=== PATIENT | male | born 1950 | race Caucasian/White ===

== ENCOUNTER 2018-12-15 19:01 | Inpatient (IN) | payer MEDICARE, OTHER ==
[~2018-12-15] VITALS: Ht 162.6 cm; Wt 65.0 kg
[~2018-12-15 19:01] MED LIST: CIPR500T4 PO; DOCU-144 PO; HYDR-762 PO; PROP40TA4 PO; TEMA30CA PO; UDMOM PO
[2018-12-15] MEDS ORDERED: PIPER-TAZO 3.375 GM IV (PMX) 100 ML IVPB STA (19:16)
[2018-12-15] MEDS ORDERED: SODIUM CHLORIDE 0.9% 1L BAG IV* STA (19:16)
--- NOTE | 2018-12-15 20:15 | CONS ---
Assessment/Plan Assessment/Plan Hospital Course (Demo Recall) 68-year-old male presented to the emergency room with complaint of fever and left testicular pain. 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 He also is known to have a history of prostate cancer status post radiation. Prior to that the patient did have transurethral resection of the prostate. Regular follow-up cystoscopy was done recently and was negative for cancer. On the physical exam he does have redness and erythema of the left side of the scrotum with a hard testicle and epididymis consistent with epididymitis. Impression: Left epididymitis. Rule out urinary tract infection Plan: Urine culture and sensitivity, IV antibiotics. The patient was on Cipro at home but it seems that did not prevent infection therefore he will need different antibiotic. Will put him on Zosyn pending the results of the urine culture Consultation Date/Type/Reason Admit Date/Time December 15, 2018 Date of Consultation: Dec 15, 2018 Type of Consult Urology Reason for Consultation Left epididymitis Requesting Provider: JUAN GALVAN MD Date/Time of Note DATE: 12/15/18 TIME: 20:07 Hx of Present Illness 68-year-old male presented to the emergency room with complaint of fever and left testicular pain. 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 He also is known to have a history of prostate cancer status post radiation. Prior to that the patient did have transurethral resection of the prostate. Regular follow-up cystoscopy was done recently and was negative for cancer. Constitutional: chills, febrile Eyes: no complaints ENT: no complaints Respiratory: no complaints Cardiovascular: no complaints Gastrointestinal: no complaints Genitourinary: dysuria, other (Left testicular pain) Musculoskeletal: no complaints Skin: no complaints Past Medical History Medical History: other (Depression) Home Meds Active Scripts Magnesium Hydroxide* (Becerril' MOM*) 30 Ml Susp, 30 ML PO DAILY PRN for CONSTIPATION, #120 BOTTLE Prov:LISBETH CARLISLE MD 06/02/14 Docusate Sodium* (Colace*) 100 Mg Cap, 100 MG PO BID, #60 CAP Prov:LISBETH CARLISLE MD 06/02/14 Reported Medications Ciprofloxacin Hcl* (Ciprofloxacin Hcl*) 500 Mg Tablet, 500 MG PO BID for 5 Days, TAB 0 Refills 06/02/14 Propranolol Hcl* (Propranolol Hcl*) 40 Mg Tablet, 40 MG PO BID, TAB 06/01/14 Temazepam* (Temazepam*) 30 Mg Capsule, 30 MG PO HS PRN for INSOMNIA, CAP 06/01/14 Hydrocodone Bit-Acetaminophen* ([place]*) 10-325 Mg Tablet, 1 TAB PO Q4H PRN for PAIN, TAB 06/01/14 Allergies: Coded Allergies: No Known Allergies (Verified Allergy, Unknown, 09/27/13) Past Surgical History Past Surgical Hx: appendectomy, cholecystectomy, other (Right nephroureterectomy and bladder cuff resection and transurethral resection of the prostate.) Social History Alcohol Use: none Smoking Status: Former smoker Drug Use: none Exam/Review of Systems Exam Vitals Vital Signs Date Temp Pulse Resp B/P (MAP) Pulse Ox O2 O2 Flow FiO2 Time Delivery Rate 12/15/18 100.9 109 18 97/59 (72) 96 19:03 Constitutional: alert Head: normocephalic Neck: supple Respiratory: normal air movement; No wheezing Cardiovascular: No jugular venous distention (JVD) Gastrointestinal: soft, surgical scars Genitourinary - Male: other (Left testis is hard and painful and the scrotal skin is erythematous and red) Musculoskeletal: nl extremities to inspection Extremities: No calf tenderness Neurological: nl mental status Skin: nl turgor Lymph: nl lymph nodes Results Result Diagram: 12/15/18192512/15/181925 Results 24hrs Laboratory Tests Test 12/15/18 19:21 12/15/18 19:26 POC Venous Lactate 1.6 White Blood Count 20.3 #H Red Blood Count 4.02 L Hemoglobin 11.7 L Hematocrit 36.1 L Mean Corpuscular Volume 89.8 Mean Corpuscular Hemoglobin 29.1 Mean Corpuscular Hemoglobin Concent 32.4 Red Cell Distribution Width 15.2 H Platelet Count 462 H Mean Platelet Volume 9.7 Immature Granulocytes % 0.700 H Neutrophils % 75.7 Lymphocytes % 11.3 L Monocytes % 10.3 Eosinophils % 1.3 Basophils % 0.7 Nucleated Red Blood Cells % 0.0 Immature Granulocytes # 0.150 H Neutrophils # 15.3 H Lymphocytes # 2.3 Monocytes # 2.1 H Eosinophils # 0.3 Basophils # 0.2 H Nucleated Red Blood Cells # 0.0 Prothrombin Time 12.9 Prothrombin Time Ratio 1.0 INR International Normalized Ratio 0.96 Activated Partial Thromboplast Time 32.3 Urine Color YELLOW Urine Clarity SLIGHTLY CLOUDY A Urine pH 6.0 Urine Specific [place] 1.023 Urine Ketones NEGATIVE Urine Nitrite NEGATIVE Urine Bilirubin NEGATIVE Urine Urobilinogen NEGATIVE Urine Leukocyte Esterase 2+ H Urine Microscopic RBC 3 Urine Microscopic WBC 84 H Urine Mucus FEW A Urine Hemoglobin NEGATIVE Urine Glucose NEGATIVE Urine Total Protein 1+ H Sodium Level 141 Potassium Level 4.1 Chloride Level 104 Carbon Dioxide Level 26 Anion Gap 11 Blood Urea Nitrogen 19 Creatinine 0.99 Est Glomerular Filtrat Rate mL/min > 60 Glucose Level 129 Calcium Level 9.7 Total Bilirubin 0.4 Direct Bilirubin 0.00 Indirect Bilirubin 0.4 Aspartate Amino Transf (AST/SGOT) 29 Alanine Aminotransferase (ALT/SGPT) 36 Alkaline Phosphatase 100 Troponin I < 0.012 Total Protein 8.0 Albumin 4.0 Globulin 4.00 H Albumin/Globulin Ratio 1.00 LISBETH CARLISLE MD Dec 15, 2018 20:14
--- NOTE | 2018-12-15 20:33 | ERD ---
ER Documentation Chief Complaint Chief Complaint FEVER, AP X'S 1 WEEK. SENT BY PCP FOR IMAGING HPI 68-year-old male presenting with multiple complaints including intermittent fevers for the past few weeks as well as chills and night sweats. He has been experiencing several months of right-sided abdominal pain that is worsening, ra diating up into his right upper quadrant and across his lower abdomen. He denies any associated hematuria or dysuria. However he did have recent cystoscopy. His urologist is Dr. Carlisle. He has not been having any associated nausea, vomiting, or diarrhea. He is also complaining of a dry cough without hemoptysis or phlegm production. No associated shortness of breath or chest pain. ROS All systems reviewed and are negative except as per history of present illness. Medications Home Meds Active Scripts Magnesium Hydroxide* (Becerril' MOM*) 30 Ml Susp, 30 ML PO DAILY PRN for CONSTIPATION, #120 BOTTLE Prov:LISBETH CARLISLE MD 06/02/14 Docusate Sodium* (Colace*) 100 Mg Cap, 100 MG PO BID, #60 CAP Prov:LISBETH CARLISLE MD 06/02/14 Reported Medications Ciprofloxacin Hcl* (Ciprofloxacin Hcl*) 500 Mg Tablet, 500 MG PO BID for 5 Days, TAB 0 Refills 06/02/14 Propranolol Hcl* (Propranolol Hcl*) 40 Mg Tablet, 40 MG PO BID, TAB 06/01/14 Temazepam* (Temazepam*) 30 Mg Capsule, 30 MG PO HS PRN for INSOMNIA, CAP 06/01/14 Hydrocodone Bit-Acetaminophen* ([place]*) 10-325 Mg Tablet, 1 TAB PO Q4H PRN for PAIN, TAB 06/01/14 Allergies Allergies: Coded Allergies: No Known Allergies (Verified Allergy, Unknown, 09/27/13) PMhx/Soc History of Surgery: Yes (TURP, nephrectomy) Anesthesia Reaction: No Hx Neurological Disorder: No Hx Respiratory Disorders: No Hx Cardiac Disorders: No Hx Psychiatric Problems: Yes (INSOMIA) Hx Miscellaneous Medical Probl: Yes (History of prostate cancer, right kidney cancer) Hx Alcohol Use: No Hx Substance Use: No Hx Tobacco Use: No Smoking Status: Former smoker FmHx Family History: No diabetes Physical Exam Vitals Vital Signs Date Temp Pulse Resp B/P (MAP) Pulse Ox O2 O2 Flow FiO2 Time Delivery Rate 7/3/19 85 16 110/83 96 Room Air 22:30 (92) 12/15/18 84 18 112/78 97 Room Air 22:00 (89) 12/15/18 86 16 105/61 96 Room Air 21:30 (76) 12/15/18 98.8 84 16 109/66 99 Room Air 20:06 (80) 12/15/18 100.9 109 18 97/59 (72) 96 19:03 Physical Exam Const: No acute distress, nontoxic Head: Atraumatic Eyes: Normal Conjunctiva ENT: Normal External Ears, Nose and Mouth. Neck: Full range of motion. No meningismus. Resp: Clear to auscultation bilaterally Cardio: Regular rate and rhythm, no murmurs Abd: Soft, mild right lower quadrant tenderness without rebound or guarding. No masses. Non distended. Normal bowel sounds Skin: No petechiae or rashes Back: No midline or flank tenderness Ext: No cyanosis, or edema Neur: Awake and alert Psych: Normal Mood and Affect Result Diagram: 12/15/18192512/15/181925 Results 24 hrs Laboratory Tests Test 12/15/18 19:21 12/15/18 19:26 12/15/18 21:47 POC Venous Lactate 1.6 mmol/L White Blood Count 20.3 10^3/ul Red Blood Count 4.02 10^6/ul Hemoglobin 11.7 g/dl Hematocrit 36.1 % Mean Corpuscular Volume 89.8 fl Mean Corpuscular Hemoglobin 29.1 pg Mean Corpuscular Hemoglobin Concent 32.4 g/dl Red Cell Distribution Width 15.2 % Platelet Count 462 10^3/UL Mean Platelet Volume 9.7 fl Immature Granulocytes % 0.700 % Neutrophils % 75.7 % Lymphocytes % 11.3 % Monocytes % 10.3 % Eosinophils % 1.3 % Basophils % 0.7 % Nucleated Red Blood Cells % 0.0 /100WBC Immature Granulocytes # 0.150 10^3/ul Neutrophils # 15.3 10^3/ul Lymphocytes # 2.3 10^3/ul Monocytes # 2.1 10^3/ul Eosinophils # 0.3 10^3/ul Basophils # 0.2 10^3/ul Nucleated Red Blood Cells # 0.0 10^3/ul Prothrombin Time 12.9 Sec Prothrombin Time Ratio 1.0 INR International Normalized Ratio 0.96 Activated Partial Thromboplast Time 32.3 Sec Urine Color YELLOW Urine Clarity SLIGHTLY CLOUDY Urine pH 6.0 Urine Specific [place] 1.023 Urine Ketones NEGATIVE mg/dL Urine Nitrite NEGATIVE mg/dL Urine Bilirubin NEGATIVE mg/dL Urine Urobilinogen NEGATIVE mg/dL Urine Leukocyte Esterase 2+ Jose/ul Urine Microscopic RBC 3 /HPF Urine Microscopic WBC 84 /HPF Urine Mucus FEW /HPF Urine Hemoglobin NEGATIVE mg/dL Urine Glucose NEGATIVE mg/dL Urine Total Protein 1+ mg/dl Sodium Level 141 mmol/L Potassium Level 4.1 mmol/L Chloride Level 104 mmol/L Carbon Dioxide Level 26 mmol/L Anion Gap 11 Blood Urea Nitrogen 19 mg/dl Creatinine 0.99 mg/dl Est Glomerular Filtrat Rate mL/min > 60 mL/min Glucose Level 129 mg/dl Calcium Level 9.7 mg/dl Total Bilirubin 0.4 mg/dl Direct Bilirubin 0.00 mg/dl Indirect Bilirubin 0.4 mg/dl Aspartate Amino Transf (AST/SGOT) 29 IU/L Alanine Aminotransferase (ALT/SGPT) 36 IU/L Alkaline Phosphatase 100 IU/L Troponin I < 0.012 ng/ml Total Protein 8.0 g/dl Albumin 4.0 g/dl Globulin 4.00 g/dl Albumin/Globulin Ratio 1.00 Lactic Acid Level 0.9 mmol/L Current Medications Medications Dose Sig/Liset Start Time Status Last (Trade) Ordered Route PRN Stop Time Admin Dose Reason Admin Sodium 1,900 ml BOLUS OVER 2 12/15/18 DC 12/15/18 Chloride HOURS STAT 19:16 12/15/18 19:26 (NS) IV* 19:18 Piperacillin 100 ml @ ONCE STAT 12/15/18 DC 12/15/18 Sod/ 200 mls/hr IVPB 19:16 12/15/18 19:26 Tazobactam 19:45 Sod IV Flush 10 ml STK-MED 12/15/18 DC (NS 10 ml) ONCE .ROUTE 20:35 12/15/18 20:36 Sodium 100 ml @ ud STK-MED 12/15/18 DC Chloride ONCE .ROUTE 20:35 12/15/18 20:36 Iohexol 150 ml STK-MED 12/15/18 DC (Omnipaque ONCE .ROUTE 20:35 12/15/18 300mg/ ml) 20:36 Ondansetron 4 mg BRIDGE ORDER 12/15/18 HCl (Zofran PRN IV 23:00 12/16/18 Inj) NAUSEA/VOMITI 22:59 NG 650 mg ER BRIDGE 12/15/18 Acetaminophen PRN PO 23:00 12/16/18 (Tylenol .MILD PAIN 22:59 Tab) 1-3 OR TEMP Procedures/MDM EMERGENT LABS AND DIAGNOSTIC STUDIES: Lab Results above were reviewed and interpreted by me. CBC: Leukocytosis and thrombocytosis, concerning for infection. No significant anemia CMP: No evidence of clinically significant electrolyte abnormality, acidosis, renal failure, hypoglycemia, liver disease, or biliary obstruction Troponin within normal limits, not indicative of cardiac ischemia Lactate within normal limits without evidence of sepsis or tissue hypoperfusion UA: findings consistent with acute infection 12-lead EKG was interpreted by Khadar Simpson MD: Normal Sinus Rhythm with ventricular rate of 81 beats per minute Normal axis Normal intervals No acute ST or T wave changes suggestive of acute ischemia or STEMI. Radiology Results as interpreted by Radiology below were reviewed by SNeal martinez MD: Chest x-ray: IMPRESSION: 1. A spiculated 5.7 x 3.8 cm mass like density is seen within the medial right upper lobe extending to the right paratracheal region. Correlation with CT is r ecommended for further evaluation. 2. No effusion is identified. 3. The cardiovascular silhouette is stable and unremarkable. 4. There is now mild elevation of the medial right hemidiaphragm. 5. Several right anterolateral rib fracture deformities are again noted. CT abdomen pelvis shows no acute abnormalities Initial Nursing notes reviewed. Previous Medical Records requested via the Electronic Health Record. EMERGENCY DEPARTMENT COURSE / MEDICAL DECISION MAKING: Admit MDM: Patient presented with fever and tachycardia with associated abdominal pain, concerning for Sirs possibly due to infection. Sepsis work-up was initiated. Patient did have leukocytosis but his lactate was within normal limits and there is no other signs of endorgan injury. No evidence of severe sepsis or septic shock at this time. However the patient was treated with IV fluids, IV antibiotics, and noted to have a UTI and epididymitis on work-up. Patient was incidentally found to have a right-sided Pulmonary mass on chest x-ray which was further evaluated by CT scan of the chest. It seems that the patient most likely has lung malignancy. This was discussed with the patient and his family. Further work-up will be deferred to the inpatient team. Patient's infectious symptoms have not stabilized, and the patient is at risk of rapid decompensation. The patient will be admitted for careful hydration, antibiotic therapy, and infectious source control. Accepting Care Team Current data and ongoing care discussed. Admitting Physician: Dr. Ybarra Customer Program Specialist(s): Dr. Carlisle Critical Care Time: 35 minutes Treatments/Evaluations: Close monitoring and treatment of unstable vital signs, cardiorespiratory, and neurologic status, while maintaining tight balance of fluid, respiratory, and cardiac interventions. This includes the administration of emergency fluid management while maintaining close respiratory support as well as the provision of immediate and broad-spectrum antibiotic therapy, while performing a simultaneous assessment for possible sources in order to direct targeted therapy. This time includes discussing the case with the patient and the patients family.This time also includes the consideration for invasive and chemical support to prevent cardiopulmonary collapse. This time does not include all procedures stated elsewhere in this record. This time also includes reviewing old records, labs and radiological studies. This time includes examining and reexamining the patient. Additionally, this time also includes arranging care with admitting and consulting physicians. Departure Diagnosis: Primary Impression: UTI (urinary tract infection) Urinary tract infection type: acute cystitis Hematuria presence: without hematuria Qualified Codes: N30.00 - Acute cystitis without hematuria Additional Impressions: Sepsis Sepsis type: sepsis due to unspecified organism Qualified Codes: A41.9 - Sepsis, unspecified organism Lung tumor Condition: JUAN Parker MD Dec 15, 2018 20:33
[2018-12-15] MEDS ORDERED: SOD CHLORIDE 0.9% 100 ML ONE (20:35)
[2018-12-15] MEDS ORDERED: IOHEXOL 300MG/ML 150 ML BTL ONE (20:35)
[2018-12-15] MEDS ORDERED: ACETAMINOPHEN 325 MG TAB PO PRN (23:00)
[2018-12-15] MEDS ORDERED: ONDANSETRON 4 MG INJ IV PRN (23:00)
[2018-12-16] MEDS ORDERED: COLC0.6C PO (00:28)
[2018-12-16] MEDS ORDERED: IBUP-1541 PO (00:28)
[2018-12-16] MEDS ORDERED: AMOX500C2 PO (00:28)
[2018-12-16] MEDS ORDERED: PROP20TA4 PO (00:28)
[2018-12-16 00:31] VITALS: BP 133/73; PULSE 84; RESP 18
[2018-12-16] MEDS ORDERED: ACET500C5 PO (00:44)
[2018-12-16] MEDS ORDERED: HYDR-3980 PO (00:44)
[2018-12-16] MEDS ORDERED: TEMA30CA PO (00:44)
[2018-12-16 00:51] VITALS: Ht 162.6 cm; Wt 65.0 kg
[2018-12-16] MEDS ORDERED: NACL 0.9% 3 ML SYG IV SCH (01:30)
[2018-12-16] MEDS ORDERED: IBUPROFEN 400 MG TAB PO PRN (01:30)
[2018-12-16] MEDS ORDERED: morphine 2 MG INJ IV PRN (01:30)
[2018-12-16] MEDS ORDERED: ALBUTEROL/IPRATROPIUM (NEB) 3 ML AMP HHN PRN (01:30)
[2018-12-16] MEDS ORDERED: ACETAMINOPHEN 325 MG TAB PO PRN (01:30)
[2018-12-16] MEDS ORDERED: ONDANSETRON 4 MG INJ IV PRN (01:30)
[2018-12-16] MEDS: HYDROCODONE/APAP (10/325) TAB PO PRN ×4 (01:38→23:52)
[2018-12-16] MEDS: SOD CHLORIDE 0.9% 1,000 ML IV SCH ×3 (01:38→16:00)
[2018-12-16 02:00] VITALS: BP 122/58; PULSE 85; RESP 17
[2018-12-16] MEDS: PIPER-TAZO 3.375 GM IV (PMX) 100 ML IVPB SCH ×4 (05:20→23:46)
[2018-12-16 08:15] VITALS: BP 110/58; PULSE 90; RESP 18
[2018-12-16] MEDS: COLCHICINE 0.6 MG CAP PO SCH ×2 (08:31→20:29)
[2018-12-16] MEDS ORDERED: NON-FORMULARY/PATIENT OWN MED (Colchicine 0.6 MG) PO SCH (09:00)
[2018-12-16] MEDS ORDERED: HEPARIN 5,000 UNIT/1 ML VIAL SC SCH (09:00)
--- NOTE | 2018-12-16 09:48 | HP ---
Date/Time of Note Date/Time of Note DATE: 12/16/18 TIME: 09:39 Assessment/Plan VTE Prophylaxis Risk score (from [facility] [place] [facility])>0 risk: 3 SCD applied (from Ns): Yes Pharmacological prophylaxis: heparin Lines/Catheters IV Catheter Type (from [facility]): Peripheral IV Assessment/Plan Assessment/Plan 1. Sepsis, as evidenced by fever and leukocytosis: Secondary to left epididymitis and UTI -IV antibiotic, IV fluid -Follow-up culture results -Urology on board 2. Suspicious lung metastasis -Patient with a history of left renal carcinoma status post nephrectomy and prostate cancer status post TURP and radiation -Oncology consult 3. History of left renal cancer, status post nephroureterectomy and bladder cuff surgery -See #2 4. History of prostate cancer, status post TURP and radiation: Again see #2 5. Severe emphysema, patient on active smoker -Supplemental oxygen, bronchodilators and steroid as needed Result Diagram: 12/16/18 0655 12/16/18 0655 Results 24hrs Laboratory Tests Test 12/15/18 19:21 12/15/18 19:26 12/15/18 21:47 12/15/18 23:34 POC Venous Lactate 1.6 White Blood Count 20.3 #H Red Blood Count 4.02 L Hemoglobin 11.7 L Hematocrit 36.1 L Mean Corpuscular 89.8 Volume Mean Corpuscular 29.1 Hemoglobin Mean Corpuscular 32.4 Hemoglobin Concent Red Cell 15.2 H Distribution Width Platelet Count 462 H Mean Platelet 9.7 Volume Immature 0.700 H Granulocytes % Neutrophils % 75.7 Lymphocytes % 11.3 L Monocytes % 10.3 Eosinophils % 1.3 Basophils % 0.7 Nucleated Red 0.0 Blood Cells % Immature 0.150 H Granulocytes # Neutrophils # 15.3 H Lymphocytes # 2.3 Monocytes # 2.1 H Eosinophils # 0.3 Basophils # 0.2 H Nucleated Red 0.0 Blood Cells # Prothrombin Time 12.9 Prothrombin Time 1.0 Ratio INR International 0.96 Normalized Ratio Activated 32.[address] Time Urine Color YELLOW Urine Clarity SLIGHTLY CLOUDY A Urine pH 6.0 Urine Specific 1.023 [place] Urine Ketones NEGATIVE Urine Nitrite NEGATIVE Urine Bilirubin NEGATIVE Urine Urobilinogen NEGATIVE Urine Leukocyte 2+ H Esterase Urine Microscopic 3 RBC Urine Microscopic 84 H WBC Urine Mucus FEW A Urine Hemoglobin NEGATIVE Urine Glucose NEGATIVE Urine Total 1+ H Protein Sodium Level 141 Potassium Level 4.1 Chloride Level 104 Carbon Dioxide 26 Level Anion Gap 11 Blood Urea 19 Nitrogen Creatinine 0.99 Est Glomerular > 60 Filtrat Rate mL/min Glucose Level 129 Calcium Level 9.7 Total Bilirubin 0.4 Direct Bilirubin 0.00 Indirect Bilirubin 0.4 Aspartate Amino 29 Transf (AST/SGOT) Alanine 36 Aminotransferase ( ALT/SGPT) Alkaline 100 Phosphatase Troponin I < 0.012 Total Protein 8.0 Albumin 4.0 Globulin 4.00 H Albumin/Globulin 1.00 Ratio Lactic Acid Level 0.9 0.9 Test 12/16/18 06:55 White Blood Count 16.5 H Red Blood Count 3.46 L Hemoglobin 10.1 L Hematocrit 31.0 L Mean Corpuscular 89.6 Volume Mean Corpuscular 29.2 Hemoglobin Mean Corpuscular 32.6 Hemoglobin Concent Red Cell 15.3 H Distribution Width Platelet Count 404 Mean Platelet 9.8 Volume Immature 0.800 H Granulocytes % Neutrophils % 75.2 Lymphocytes % 12.6 L Monocytes % 9.1 Eosinophils % 1.6 Basophils % 0.7 Nucleated Red 0.0 Blood Cells % Immature 0.130 H Granulocytes # Neutrophils # 12.4 H Lymphocytes # 2.1 Monocytes # 1.5 H Eosinophils # 0.3 Basophils # 0.1 Nucleated Red 0.0 Blood Cells # Sodium Level 140 Potassium Level 3.9 Chloride Level 107 Carbon Dioxide 24 Level Anion Gap 9 Blood Urea 11 Nitrogen Creatinine 0.75 Est Glomerular > 60 Filtrat Rate mL/min Glucose Level 106 Calcium Level 8.8 Phosphorus Level 2.4 L Magnesium Level 1.9 Total Bilirubin 0.5 Direct Bilirubin 0.00 Indirect Bilirubin 0.5 Aspartate Amino 21 Transf (AST/SGOT) Alanine 32 Aminotransferase ( ALT/SGPT) Alkaline 82 Phosphatase Total Protein 6.7 # Albumin 3.2 L Globulin 3.50 H Albumin/Globulin 0.91 Ratio HPI/ROS Admit Date/Time Admit Date/Time December 15, 2018 Hx of Present Illness Patient is a 68-year-old male with a history of right kidney carcinoma status post nephrectomy, prostate cancer status post TURP and radiation. Patient presented to ER complaining of left testicular pain and redness. He recently had cystoscopy which was negative for malignancy. When the presents the ER, he was febrile with a temperature of 100.9. WBC 20,000. UA consistent with UTI. Patient has been on Cipro at home. 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 No residual, recurrent or metastatic disease. Tiny nonobstructing left renal calculus. Parenchymal cyst left kidney. -Cholecystectomy. -Hepatic cysts. -Stable 8 mm nodule right lower lobe unchanged since 2012. -Mild scarring lung bases. -No evidence of diverticulitis. Nonvisualization appendix. Dedicated chest CT was done and it shows the following: -5.7 cm paramediastinal mass in the right upper lobe which abuts the superior right hilum, suspicious for a primary lung neoplasm. Diffuse interstitial opacities are seen along the periphery of the lesion, consistent with neoplastic infiltration into the lung. -Two left lower lobe nodules measuring up to 9 mm, suspicious for metastatic disease. -A few right paratracheal lymph nodes measuring up to 8 mm short axis. Although these are not technically enlarged by CT criteria, lymph node metastases cannot be excluded. -Moderate to severe centrilobular emphysema, in an upper lung predominant distribution. -Nonspecific 2.3 cm right adrenal gland nodule. PMH/Family/Social Past Medical History Medical History: other Medications Current Medications Ondansetron HCl (Zofran Inj) 4 mg BRIDGE ORDER PRN IV NAUSEA/VOMITING; Start 12/15/18 at 23:00; Stop 12/16/18 at 22:59 Acetaminophen (Tylenol Tab) 650 mg ER BRIDGE PRN PO .MILD PAIN 1-3 OR TEMP; Start 12/15/18 at 23:00; Stop 12/16/18 at 22:59 Sodium Chloride 1,000 ml @ 100 mls/hr Q10H IV Last administered on 12/16/18at 01:38; Admin Dose 100 MLS/HR; Start 12/16/18 at 01:13 IV Flush (NS 3 ml) 3 ml PER PROTOCOL IV ; Start 12/16/18 at 01:30 Ondansetron HCl (Zofran Inj) 4 mg Q6H PRN IV NAUSEA/VOMITING; Start 12/16/18 at 01:30 Acetaminophen (Tylenol Tab) 650 mg Q6H PRN PO .PAIN 1-3 OR TEMP; Start 12/16/18 at 01:30 Morphine Sulfate (morphine) 2 mg Q4H PRN IV .SEVERE PAIN 7-10; Start 12/16/18 at 01:30 Heparin Sodium (Porcine) (Heparin (5000 Units/1ml)) 5,000 unit Q12 SC Last administered on 12/16/18at 08:32; Admin Dose 5,000 UNIT; Start 12/16/18 at 09:00 Albuterol/ Ipratropium (Duoneb) 3 ml Q2H RESP THERAPY PRN HHN SHORTNESS OF BREATH; Start 12/16/18 at 01:30 Acetaminophen/ Hydrocodone Bitart ([place] (10/325)) 1 tab Q4H PRN PO PAIN Last administered on 12/16/18at 01:38; Admin Dose 1 TAB; Start 12/16/18 at 01:30 Ibuprofen (Motrin) 400 mg Q6H PRN PO PAIN LEVEL 1-3 OR FEVER; Start 12/16/18 at 01:30 Zolpidem Tartrate (Ambien) 5 mg HS MAY REPEAT X 1 PRN PO INSOMNIA; Start 12/16/18 at 01:30 Piperacillin Sod/ Tazobactam Sod 100 ml @ 200 mls/hr Q6 IVPB Last administered on 12/16/18at 05:20; Admin Dose 200 MLS/HR; Start 12/16/18 at 06:00 Colchicine (Colchicine) 0.6 mg BID PO Last administered on 12/16/18at 08:31; Admin Dose 0.6 MG; Start 12/16/18 at 09:00 Coded Allergies: No Known Allergies (Unverified Allergy, Unknown, 12/16/18) Past Surgical History Past Surgical Hx: appendectomy, cholecystectomy, other Social History Alcohol Use: none Smoking Status: Current every day smoker Drug Use: none Exam/Review of Systems Vital Signs Vitals Vital Signs Date Temp Pulse Resp B/P (MAP) Pulse Ox O2 O2 Flow FiO2 Time Delivery Rate 12/16/18 98.5 90 18 110/58 95 Room Air 08:15 (75) Intake and Output 12/15/18 12/15/18 12/16/18 1515:00 23:00 07:00 IntakeIntake Total 550 ml BalanceBalance 550 ml Exam Constitutional: alert, oriented Head: normocephalic, atraumatic Eyes: EOMI, PERRL Respiratory: normal air movement Cardiovascular: regular rate and rhythm Gastrointestinal: soft, non-tender Genitourinary - Male: other (Left side of scrotum/testicle is not swollen and erythematous and tender to touch) Extremities: normal pulses SAMUEL CURRIE MD Dec 16, 2018 09:48
[2018-12-16] MEDS ORDERED: VANCOMYCIN IV PER PHARMACY XX SCH (10:00)
[2018-12-16] MEDS ORDERED: VANCOMYCIN HCL 1.25 GM in SOD CHLORIDE 0.9% 250 ML IVPB SCH (12:00)
--- NOTE | 2018-12-16 12:43 | PN ---
Date/Time of Note Date/Time of Note DATE: 12/16/18 TIME: 12:41 Assessment/Plan VTE Prophylaxis Risk score (from Ns)>0 risk: 3 SCD applied (from Ns): Yes SCD contraindicated: low risk/ambulating Pharmacological prophylaxis: LMWH Lines/Catheters IV Catheter Type (from [facility]): Peripheral IV Assessment/Plan Hospital Course Assessment and plan 1. Sepsis, stable follow-up on cultures 2. Left epididymitis, continue antibiotics 3. 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 History of prostate cancer status post radiation 5. BPH status post TURP 6. Tobacco abuse status post counseling 7. Emphysema 8. Anemia 9. Multiple pulmonary nodules, consider outpatient oncology/biopsy 10. Subjective: Left testicular pain. Less fever. Occasional loose bowel movements. No nausea vomiting or ill foods. Patient Objective: Vital signs stable less fever Physical exam No pallor adenopathy Regular Clear no tachypnea Benign; left testicular tenderness No edema/Homans Result Diagram: 12/16/18 0655 12/16/18 0655 Results 24hrs Laboratory Tests Test 12/15/18 19:21 12/15/18 19:26 12/15/18 21:47 12/15/18 23:34 POC Venous Lactate 1.6 White Blood Count 20.3 #H Red Blood Count 4.02 L Hemoglobin 11.7 L Hematocrit 36.1 L Mean Corpuscular 89.8 Volume Mean Corpuscular 29.1 Hemoglobin Mean Corpuscular 32.4 Hemoglobin Concent Red Cell 15.2 H Distribution Width Platelet Count 462 H Mean Platelet 9.7 Volume Immature 0.700 H Granulocytes % Neutrophils % 75.7 Lymphocytes % 11.3 L Monocytes % 10.3 Eosinophils % 1.3 Basophils % 0.7 Nucleated Red 0.0 Blood Cells % Immature 0.150 H Granulocytes # Neutrophils # 15.3 H Lymphocytes # 2.3 Monocytes # 2.1 H Eosinophils # 0.3 Basophils # 0.2 H Nucleated Red 0.0 Blood Cells # Prothrombin Time 12.9 Prothrombin Time 1.0 Ratio INR International 0.96 Normalized Ratio Activated 32.[address] Time Urine Color YELLOW Urine Clarity SLIGHTLY CLOUDY A Urine pH 6.0 Urine Specific 1.023 Philip Urine Ketones NEGATIVE Urine Nitrite NEGATIVE Urine Bilirubin NEGATIVE Urine Urobilinogen NEGATIVE Urine Leukocyte 2+ H Esterase Urine Microscopic 3 RBC Urine Microscopic 84 H WBC Urine Mucus FEW A Urine Hemoglobin NEGATIVE Urine Glucose NEGATIVE Urine Total 1+ H Protein Sodium Level 141 Potassium Level 4.1 Chloride Level 104 Carbon Dioxide 26 Level Anion Gap 11 Blood Urea 19 Nitrogen Creatinine 0.99 Est Glomerular > 60 Filtrat Rate mL/min Glucose Level 129 Calcium Level 9.7 Total Bilirubin 0.4 Direct Bilirubin 0.00 Indirect Bilirubin 0.4 Aspartate Amino 29 Transf (AST/SGOT) Alanine 36 Aminotransferase ( ALT/SGPT) Alkaline 100 Phosphatase Troponin I < 0.012 Total Protein 8.0 Albumin 4.0 Globulin 4.00 H Albumin/Globulin 1.00 Ratio Lactic Acid Level 0.9 0.9 Test 12/16/18 06:55 White Blood Count 16.5 H Red Blood Count 3.46 L Hemoglobin 10.1 L Hematocrit 31.0 L Mean Corpuscular 89.6 Volume Mean Corpuscular 29.2 Hemoglobin Mean Corpuscular 32.6 Hemoglobin Concent Red Cell 15.3 H Distribution Width Platelet Count 404 Mean Platelet 9.8 Volume Immature 0.800 H Granulocytes % Neutrophils % 75.2 Lymphocytes % 12.6 L Monocytes % 9.1 Eosinophils % 1.6 Basophils % 0.7 Nucleated Red 0.0 Blood Cells % Immature 0.130 H Granulocytes # Neutrophils # 12.4 H Lymphocytes # 2.1 Monocytes # 1.5 H Eosinophils # 0.3 Basophils # 0.1 Nucleated Red 0.0 Blood Cells # Sodium Level 140 Potassium Level 3.9 Chloride Level 107 Carbon Dioxide 24 Level Anion Gap 9 Blood Urea 11 Nitrogen Creatinine 0.75 Est Glomerular > 60 Filtrat Rate mL/min Glucose Level 106 Calcium Level 8.8 Phosphorus Level 2.4 L Magnesium Level 1.9 Total Bilirubin 0.5 Direct Bilirubin 0.00 Indirect Bilirubin 0.5 Aspartate Amino 21 Transf (AST/SGOT) Alanine 32 Aminotransferase ( ALT/SGPT) Alkaline 82 Phosphatase Total Protein 6.7 # Albumin 3.2 L Globulin 3.50 H Albumin/Globulin 0.91 Ratio Exam/Review of Systems Exam Vitals Vital Signs Date Temp Pulse Resp B/P (MAP) Pulse Ox O2 O2 Flow FiO2 Time Delivery Rate 12/16/18 98.5 90 18 110/58 95 Room Air 08:15 (75) Intake and Output 12/15/18 12/15/18 12/16/18 1515:00 23:00 07:00 IntakeIntake Total 550 ml BalanceBalance 550 ml Results Results 24hrs Laboratory Tests Test 12/15/18 19:21 12/15/18 19:26 12/15/18 21:47 12/15/18 23:34 POC Venous Lactate 1.6 White Blood Count 20.3 #H Red Blood Count 4.02 L Hemoglobin 11.7 L Hematocrit 36.1 L Mean Corpuscular 89.8 Volume Mean Corpuscular 29.1 Hemoglobin Mean Corpuscular 32.4 Hemoglobin Concent Red Cell 15.2 H Distribution Width Platelet Count 462 H Mean Platelet 9.7 Volume Immature 0.700 H Granulocytes % Neutrophils % 75.7 Lymphocytes % 11.3 L Monocytes % 10.3 Eosinophils % 1.3 Basophils % 0.7 Nucleated Red 0.0 Blood Cells % Immature 0.150 H Granulocytes # Neutrophils # 15.3 H Lymphocytes # 2.3 Monocytes # 2.1 H Eosinophils # 0.3 Basophils # 0.2 H Nucleated Red 0.0 Blood Cells # Prothrombin Time 12.9 Prothrombin Time 1.0 Ratio INR International 0.96 Normalized Ratio Activated 32.[address] Time Urine Color YELLOW Urine Clarity SLIGHTLY CLOUDY A Urine pH 6.0 Urine Specific 1.023 Philip Urine Ketones NEGATIVE Urine Nitrite NEGATIVE Urine Bilirubin NEGATIVE Urine Urobilinogen NEGATIVE Urine Leukocyte 2+ H Esterase Urine Microscopic 3 RBC Urine Microscopic 84 H WBC Urine Mucus FEW A Urine Hemoglobin NEGATIVE Urine Glucose NEGATIVE Urine Total 1+ H Protein Sodium Level 141 Potassium Level 4.1 Chloride Level 104 Carbon Dioxide 26 Level Anion Gap 11 Blood Urea 19 Nitrogen Creatinine 0.99 Est Glomerular > 60 Filtrat Rate mL/min Glucose Level 129 Calcium Level 9.7 Total Bilirubin 0.4 Direct Bilirubin 0.00 Indirect Bilirubin 0.4 Aspartate Amino 29 Transf (AST/SGOT) Alanine 36 Aminotransferase ( ALT/SGPT) Alkaline 100 Phosphatase Troponin I < 0.012 Total Protein 8.0 Albumin 4.0 Globulin 4.00 H Albumin/Globulin 1.00 Ratio Lactic Acid Level 0.9 0.9 Test 12/16/18 06:55 White Blood Count 16.5 H Red Blood Count 3.46 L Hemoglobin 10.1 L Hematocrit 31.0 L Mean Corpuscular 89.6 Volume Mean Corpuscular 29.2 Hemoglobin Mean Corpuscular 32.6 Hemoglobin Concent Red Cell 15.3 H Distribution Width Platelet Count 404 Mean Platelet 9.8 Volume Immature 0.800 H Granulocytes % Neutrophils % 75.2 Lymphocytes % 12.6 L Monocytes % 9.1 Eosinophils % 1.6 Basophils % 0.7 Nucleated Red 0.0 Blood Cells % Immature 0.130 H Granulocytes # Neutrophils # 12.4 H Lymphocytes # 2.1 Monocytes # 1.5 H Eosinophils # 0.3 Basophils # 0.1 Nucleated Red 0.0 Blood Cells # Sodium Level 140 Potassium Level 3.9 Chloride Level 107 Carbon Dioxide 24 Level Anion Gap 9 Blood Urea 11 Nitrogen Creatinine 0.75 Est Glomerular > 60 Filtrat Rate mL/min Glucose Level 106 Calcium Level 8.8 Phosphorus Level 2.4 L Magnesium Level 1.9 Total Bilirubin 0.5 Direct Bilirubin 0.00 Indirect Bilirubin 0.5 Aspartate Amino 21 Transf (AST/SGOT) Alanine 32 Aminotransferase ( ALT/SGPT) Alkaline 82 Phosphatase Total Protein 6.7 # Albumin 3.2 L Globulin 3.50 H Albumin/Globulin 0.91 Ratio Medications Medication Current Medications Sodium Chloride 1,000 ml @ 100 mls/hr Q10H IV Last administered on 12/16/18at 01:38; Admin Dose 100 MLS/HR; Start 12/16/18 at 01:13 IV Flush (NS 3 ml) 3 ml PER PROTOCOL IV ; Start 12/16/18 at 01:30 Ondansetron HCl (Zofran Inj) 4 mg Q6H PRN IV NAUSEA/VOMITING; Start 12/16/18 at 01:30 Acetaminophen (Tylenol Tab) 650 mg Q6H PRN PO .PAIN 1-3 OR TEMP; Start 12/16/18 at 01:30 Morphine Sulfate (morphine) 2 mg Q4H PRN IV .SEVERE PAIN 7-10; Start 12/16/18 at 01:30 Heparin Sodium (Porcine) (Heparin (5000 Units/1ml)) 5,000 unit Q12 SC Last administered on 12/16/18at 08:32; Admin Dose 5,000 UNIT; Start 12/16/18 at 09:00 Albuterol/ Ipratropium (Duoneb) 3 ml Q2H RESP THERAPY PRN HHN SHORTNESS OF BREATH; Start 12/16/18 at 01:30 Acetaminophen/ Hydrocodone Bitart ([place] (10/325)) 1 tab Q4H PRN PO PAIN Last administered on 12/16/18at 12:01; Admin Dose 1 TAB; Start 12/16/18 at 01:30 Ibuprofen (Motrin) 400 mg Q6H PRN PO PAIN LEVEL 1-3 OR FEVER; Start 12/16/18 at 01:30 Zolpidem Tartrate (Ambien) 5 mg HS MAY REPEAT X 1 PRN PO INSOMNIA; Start 12/16/18 at 01:30 Piperacillin Sod/ Tazobactam Sod 100 ml @ 200 mls/hr Q6 IVPB Last administered on 12/16/18at 11:19; Admin Dose 200 MLS/HR; Start 12/16/18 at 06:00 Colchicine (Colchicine) 0.6 mg BID PO Last administered on 12/16/18at 08:31; Admin Dose 0.6 MG; Start 12/16/18 at 09:00 Vancomycin HCl (Vanco Iv Per Pharmacy) VANCOMYCIN PER PHARMACY PER PROTOCOL XX ; Start 12/16/18 at 10:00 Vancomycin HCl 1.25 gm/Sodium Chloride 250 ml @ 83.333 mls/ hr ONCE IVPB Last administered on 12/16/18at 11:54; Admin Dose 83.333 MLS/HR; Start 12/16/18 at 12:00; Stop 12/16/18 at 18:00 EMIR MAGANA MD Dec 16, 2018 12:43
[2018-12-16] MEDS ORDERED: ALBUTEROL HFA 8 GM INHALER INH PRN (13:00)
[2018-12-16 14:55] VITALS: BP 114/60; PULSE 90; RESP 18
--- NOTE | 2018-12-16 18:01 | CONS ---
Consult Date/Type/Reason Admit Date/Time Dec 15, 2018 at 23:55 Initial Consult Date 12/15/18 Type of Consultation: Urology Reason for Consultation Left epididymitis Requesting Provider: JUAN GALVAN MD Date/Time of Note DATE: 12/16/18 TIME: 17:57 Subjective Patient still has left scrotal pain but it is less than yesterday. Objective Vitals Vital Signs Date Temp Pulse Resp B/P (MAP) Pulse Ox O2 O2 Flow FiO2 Time Delivery Rate 12/16/18 98.4 90 18 114/60 95 Room Air 14:55 (78) Intake and Output 12/15/18 12/15/18 12/16/18 1515:00 23:00 07:00 IntakeIntake Total 550 ml BalanceBalance 550 ml Exam The left side of the scrotum is hard and painful. It is less erythematous. Results/Medications Result Diagram: 12/16/18 0655 12/16/18 0655 Results 24 hrs Laboratory Tests Test 12/15/18 19:21 12/15/18 19:26 12/15/18 21:47 12/15/18 23:34 POC Venous Lactate 1.6 White Blood Count 20.3 #H Red Blood Count 4.02 L Hemoglobin 11.7 L Hematocrit 36.1 L Mean Corpuscular 89.8 Volume Mean Corpuscular 29.1 Hemoglobin Mean Corpuscular 32.4 Hemoglobin Concent Red Cell 15.2 H Distribution Width Platelet Count 462 H Mean Platelet 9.7 Volume Immature 0.700 H Granulocytes % Neutrophils % 75.7 Lymphocytes % 11.3 L Monocytes % 10.3 Eosinophils % 1.3 Basophils % 0.7 Nucleated Red 0.0 Blood Cells % Immature 0.150 H Granulocytes # Neutrophils # 15.3 H Lymphocytes # 2.3 Monocytes # 2.1 H Eosinophils # 0.3 Basophils # 0.2 H Nucleated Red 0.0 Blood Cells # Prothrombin Time 12.9 Prothrombin Time 1.0 Ratio INR International 0.96 Normalized Ratio Activated 32.[address] Time Urine Color YELLOW Urine Clarity SLIGHTLY CLOUDY A Urine pH 6.0 Urine Specific 1.023 [place] Urine Ketones NEGATIVE Urine Nitrite NEGATIVE Urine Bilirubin NEGATIVE Urine Urobilinogen NEGATIVE Urine Leukocyte 2+ H Esterase Urine Microscopic 3 RBC Urine Microscopic 84 H WBC Urine Mucus FEW A Urine Hemoglobin NEGATIVE Urine Glucose NEGATIVE Urine Total 1+ H Protein Sodium Level 141 Potassium Level 4.1 Chloride Level 104 Carbon Dioxide 26 Level Anion Gap 11 Blood Urea 19 Nitrogen Creatinine 0.99 Est Glomerular > 60 Filtrat Rate mL/min Glucose Level 129 Calcium Level 9.7 Total Bilirubin 0.4 Direct Bilirubin 0.00 Indirect Bilirubin 0.4 Aspartate Amino 29 Transf (AST/SGOT) Alanine 36 Aminotransferase ( ALT/SGPT) Alkaline 100 Phosphatase Troponin I < 0.012 Total Protein 8.0 Albumin 4.0 Globulin 4.00 H Albumin/Globulin 1.00 Ratio Lactic Acid Level 0.9 0.9 Test 12/16/18 06:55 White Blood Count 16.5 H Red Blood Count 3.46 L Hemoglobin 10.1 L Hematocrit 31.0 L Mean Corpuscular 89.6 Volume Mean Corpuscular 29.2 Hemoglobin Mean Corpuscular 32.6 Hemoglobin Concent Red Cell 15.3 H Distribution Width Platelet Count 404 Mean Platelet 9.8 Volume Immature 0.800 H Granulocytes % Neutrophils % 75.2 Lymphocytes % 12.6 L Monocytes % 9.1 Eosinophils % 1.6 Basophils % 0.7 Nucleated Red 0.0 Blood Cells % Immature 0.130 H Granulocytes # Neutrophils # 12.4 H Lymphocytes # 2.1 Monocytes # 1.5 H Eosinophils # 0.3 Basophils # 0.1 Nucleated Red 0.0 Blood Cells # Sodium Level 140 Potassium Level 3.9 Chloride Level 107 Carbon Dioxide 24 Level Anion Gap 9 Blood Urea 11 Nitrogen Creatinine 0.75 Est Glomerular > 60 Filtrat Rate mL/min Glucose Level 106 Calcium Level 8.8 Phosphorus Level 2.4 L Magnesium Level 1.9 Total Bilirubin 0.5 Direct Bilirubin 0.00 Indirect Bilirubin 0.5 Aspartate Amino 21 Transf (AST/SGOT) Alanine 32 Aminotransferase ( ALT/SGPT) Alkaline 82 Phosphatase Total Protein 6.7 # Albumin 3.2 L Globulin 3.50 H Albumin/Globulin 0.91 Ratio Home Meds Reported Medications Hydrocodone/Acetaminophen ([place] 10-325 Tablet) 1 Each Tablet, 1 EACH PO Q6 PRN for PAIN, TAB 12/16/18 Acetaminophen* (Tylophen*) 500 Mg Capsule, 500 MG PO QHS PRN for INSOMNIA, TAB with Temazepam 12/16/18 Temazepam* (Temazepam*) 30 Mg Capsule, 30 MG PO HS PRN for INSOMNIA, CAP 12/16/18 Amoxicillin* (Amoxicillin*) 500 Mg Cap, 500 MG PO BID 12/16/18 Colchicine (Colchicine) 0.6 Mg Capsule, 0.6 MG PO BID 12/16/18 Ibuprofen* (Ibuprofen*) 400 Mg Tablet, 400 MG PO Q6H PRN for PAIN LEVEL 1-3 OR FEVER for 30 Days 12/16/18 Propranolol Hcl* (Propranolol Hcl*) 20 Mg Tablet, 20 MG PO BID for 30 Days, #60 12/16/18 Temazepam* (Temazepam*) 30 Mg Capsule, 30 MG PO HS PRN for INSOMNIA, CAP 06/01/14 Hydrocodone Bit-Acetaminophen* ([place]*) 10-325 Mg Tablet, 1 TAB PO Q4H PRN for PAIN, TAB 06/01/14 Discontinued Reported Medications Ciprofloxacin Hcl* (Ciprofloxacin Hcl*) 500 Mg Tablet, 500 MG PO BID for 5 Days, TAB 0 Refills 06/02/14 Propranolol Hcl* (Propranolol Hcl*) 40 Mg Tablet, 40 MG PO BID, TAB 06/01/14 Discontinued Scripts Magnesium Hydroxide* (Becerril' MOM*) 30 Ml Susp, 30 ML PO DAILY PRN for CONSTIPATION, #120 BOTTLE Prov:LISBETH CARLISLE MD 06/02/14 Docusate Sodium* (Colace*) 100 Mg Cap, 100 MG PO BID, #60 CAP Prov:LISBETH CARLISLE MD 06/02/14 Medications Current Medications Sodium Chloride 1,000 ml @ 100 mls/hr Q10H IV Last administered on 12/16/18at 16:00; Admin Dose 100 MLS/HR; Start 12/16/18 at 01:13 IV Flush (NS 3 ml) 3 ml PER PROTOCOL IV ; Start 12/16/18 at 01:30 Ondansetron HCl (Zofran Inj) 4 mg Q6H PRN IV NAUSEA/VOMITING; Start 12/16/18 at 01:30 Acetaminophen (Tylenol Tab) 650 mg Q6H PRN PO .PAIN 1-3 OR TEMP; Start 12/16/18 at 01:30 Morphine Sulfate (morphine) 2 mg Q4H PRN IV .SEVERE PAIN 7-10; Start 12/16/18 at 01:30 Albuterol/ Ipratropium (Duoneb) 3 ml Q2H RESP THERAPY PRN HHN SHORTNESS OF BREATH; Start 12/16/18 at 01:30 Acetaminophen/ Hydrocodone Bitart ([place] (10/325)) 1 tab Q4H PRN PO PAIN Last administered on 12/16/18at 12:01; Admin Dose 1 TAB; Start 12/16/18 at 01:30 Ibuprofen (Motrin) 400 mg Q6H PRN PO PAIN LEVEL 1-3 OR FEVER; Start 12/16/18 at 01:30 Zolpidem Tartrate (Ambien) 5 mg HS MAY REPEAT X 1 PRN PO INSOMNIA; Start 12/16/18 at 01:30 Piperacillin Sod/ Tazobactam Sod 100 ml @ 200 mls/hr Q6 IVPB Last administered on 12/16/18at 17:20; Admin Dose 200 MLS/HR; Start 12/16/18 at 06:00 Colchicine (Colchicine) 0.6 mg BID PO Last administered on 12/16/18at 08:31; Admin Dose 0.6 MG; Start 12/16/18 at 09:00 Vancomycin HCl (Vanco Iv Per Pharmacy) VANCOMYCIN PER PHARMACY PER PROTOCOL XX ; Start 12/16/18 at 10:00 Vancomycin HCl 1.25 gm/Sodium Chloride 250 ml @ 83.333 mls/ hr ONCE IVPB Last administered on 12/16/18at 11:54; Admin Dose 83.333 MLS/HR; Start 12/16/18 at 12:00; Stop 12/16/18 at 18:00 Enoxaparin Sodium (Lovenox) 30 mg DAILY SC ; Start 12/17/18 at 09:00 Lactobacillus Acidophilus/ Rhamnosus (Culturelle) 1 cap BID PO ; Start 12/16/18 at 21:00 Albuterol (Ventolin Hfa) 2 puff Q4H RESP THERAPY PRN INH SHORTNESS OF BREATH; Start 12/16/18 at 13:00 Famotidine (Pepcid) 20 mg HS PO ; Start 12/16/18 at 21:00 Vancomycin HCl 100 ml @ 100 mls/hr Q12H IVPB ; Start 12/17/18 at 00:00 Assessment/Plan Hospital Course (Demo Recall) 68-year-old male presented to the emergency room with complaint of fever and left testicular pain. 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 He also is known to have a history of prostate cancer status post radiation. Prior to that the patient did have transurethral resection of the prostate. Regular follow-up cystoscopy was done recently and was negative for cancer. On the physical exam he does have redness and erythema of the left side of the scrotum with a hard testicle and epididymis consistent with epididymitis. The patient is feeling better. The scrotum is less swollen and less erythematous. But it is still hard and painful. Urine culture so far no growth. The leukocytosis is less. Continue the IV antibiotics. LISBETH CARLISLE MD Dec 16, 2018 18:01
[2018-12-16 20:00] VITALS: BP 94/80; PULSE 83; RESP 16
[2018-12-16] MEDS: FAMOTIDINE 20 MG TAB PO SCH (20:29)
[2018-12-16] MEDS: LACTOBACILLUS RHAMNOSUS CAP PO SCH (20:29)
[2018-12-17] MEDS: VANCOMYCIN 500 MG (PMX) 100 ML IVPB SCH ×2 (00:31→12:28)
[2018-12-17 02:00] VITALS: BP 100/58; PULSE 82; RESP 17
[2018-12-17] MEDS: PIPER-TAZO 3.375 GM IV (PMX) 100 ML IVPB SCH ×4 (05:21→23:29)
[2018-12-17] MEDS: SOD CHLORIDE 0.9% 1,000 ML IV SCH ×2 (05:21→20:52)
[2018-12-17] MEDS: HYDROCODONE/APAP (10/325) TAB PO PRN ×4 (05:23→23:27)
[2018-12-17 07:51] VITALS: BP 100/55; PULSE 82; RESP 18
[2018-12-17] MEDS: COLCHICINE 0.6 MG CAP PO SCH ×2 (08:48→20:52)
[2018-12-17] MEDS: LACTOBACILLUS RHAMNOSUS CAP PO SCH ×2 (08:48→20:52)
[2018-12-17] MEDS: ENOXAPARIN 30 MG/0.3 ML SYG SC SCH (08:49)
--- NOTE | 2018-12-17 11:14 | CONS ---
Consult Date/Type/Reason Admit Date/Time Dec 15, 2018 at 23:55 Initial Consult Date 12/15/18 Type of Consultation: Urology Reason for Consultation Left epididymitis Requesting Provider: JUAN GALVAN MD Date/Time of Note DATE: 12/17/18 TIME: 11:13 Subjective Patient continues to have pain in the left testicle but it is less Objective Vitals Vital Signs Date Temp Pulse Resp B/P (MAP) Pulse Ox O2 O2 Flow FiO2 Time Delivery Rate 12/17/18 98.9 82 18 100/55 95 07:51 (70) 12/16/18 Room Air 14:55 Intake and Output 12/16/18 12/16/18 12/17/18 1515:00 23:00 07:00 IntakeIntake Total 1170 ml 1400 ml 1300 ml BalanceBalance 1170 ml 1400 ml 1300 ml Exam Left testis still hard and painful and the skin erythematous. Results/Medications Result Diagram: 12/17/18 0539 12/17/18 0539 Results 24 hrs Laboratory Tests Test 12/17/18 05:39 White Blood Count 13.0 #H Red Blood Count 3.48 L Hemoglobin 9.9 L Hematocrit 30.9 L Mean Corpuscular Volume 88.8 Mean Corpuscular Hemoglobin 28.4 L Mean Corpuscular Hemoglobin Concent 32.0 Red Cell Distribution Width 15.5 H Platelet Count 411 Mean Platelet Volume 9.8 Immature Granulocytes % 0.700 H Neutrophils % 69.4 Lymphocytes % 16.5 Monocytes % 9.8 Eosinophils % 2.6 Basophils % 1.0 Nucleated Red Blood Cells % 0.0 Immature Granulocytes # 0.090 H Neutrophils # 9.0 H Lymphocytes # 2.1 Monocytes # 1.3 H Eosinophils # 0.3 Basophils # 0.1 Nucleated Red Blood Cells # 0.0 Sodium Level 141 Potassium Level 3.8 Chloride Level 109 Carbon Dioxide Level 24 Anion Gap 8 Blood Urea Nitrogen 10 Creatinine 0.76 Est Glomerular Filtrat Rate mL/min > 60 Glucose Level 100 Hemoglobin A1c 5.3 Calcium Level 8.7 Phosphorus Level 2.8 Magnesium Level 1.9 Total Bilirubin 0.4 Direct Bilirubin 0.00 Indirect Bilirubin 0.4 Aspartate Amino Transf (AST/SGOT) 29 Alanine Aminotransferase (ALT/SGPT) 39 Alkaline Phosphatase 76 Total Protein 6.5 Albumin 3.1 L Globulin 3.40 H Albumin/Globulin Ratio 0.91 Thyroid Stimulating Hormone (TSH) 2.240 Home Meds Reported Medications Hydrocodone/Acetaminophen ([place] 10-325 Tablet) 1 Each Tablet, 1 EACH PO Q6 PRN for PAIN, TAB 12/16/18 Acetaminophen* (Tylophen*) 500 Mg Capsule, 500 MG PO QHS PRN for INSOMNIA, TAB with Temazepam 12/16/18 Temazepam* (Temazepam*) 30 Mg Capsule, 30 MG PO HS PRN for INSOMNIA, CAP 12/16/18 Amoxicillin* (Amoxicillin*) 500 Mg Cap, 500 MG PO BID 12/16/18 Colchicine (Colchicine) 0.6 Mg Capsule, 0.6 MG PO BID 12/16/18 Ibuprofen* (Ibuprofen*) 400 Mg Tablet, 400 MG PO Q6H PRN for PAIN LEVEL 1-3 OR FEVER for 30 Days 12/16/18 Propranolol Hcl* (Propranolol Hcl*) 20 Mg Tablet, 20 MG PO BID for 30 Days, #60 12/16/18 Temazepam* (Temazepam*) 30 Mg Capsule, 30 MG PO HS PRN for INSOMNIA, CAP 06/01/14 Hydrocodone Bit-Acetaminophen* ([place]*) 10-325 Mg Tablet, 1 TAB PO Q4H PRN for PAIN, TAB 06/01/14 Discontinued Reported Medications Ciprofloxacin Hcl* (Ciprofloxacin Hcl*) 500 Mg Tablet, 500 MG PO BID for 5 Days, TAB 0 Refills 06/02/14 Propranolol Hcl* (Propranolol Hcl*) 40 Mg Tablet, 40 MG PO BID, TAB 06/01/14 Discontinued Scripts Magnesium Hydroxide* (Becerril' MOM*) 30 Ml Susp, 30 ML PO DAILY PRN for CONSTIPATION, #120 BOTTLE Prov:LISBETH CARLISLE MD 06/02/14 Docusate Sodium* (Colace*) 100 Mg Cap, 100 MG PO BID, #60 CAP Prov:LISBETH CARLISLE MD 06/02/14 Medications Current Medications Sodium Chloride 1,000 ml @ 100 mls/hr Q10H IV Last administered on 12/17/18at 05:21; Admin Dose 100 MLS/HR; Start 12/16/18 at 01:13 IV Flush (NS 3 ml) 3 ml PER PROTOCOL IV ; Start 12/16/18 at 01:30 Ondansetron HCl (Zofran Inj) 4 mg Q6H PRN IV NAUSEA/VOMITING; Start 12/16/18 at 01:30 Acetaminophen (Tylenol Tab) 650 mg Q6H PRN PO .PAIN 1-3 OR TEMP; Start 12/16/18 at 01:30 Morphine Sulfate (morphine) 2 mg Q4H PRN IV .SEVERE PAIN 7-10; Start 12/16/18 at 01:30 Albuterol/ Ipratropium (Duoneb) 3 ml Q2H RESP THERAPY PRN HHN SHORTNESS OF BREATH; Start 12/16/18 at 01:30 Acetaminophen/ Hydrocodone Bitart ([place] (10)) 1 tab Q4H PRN PO PAIN Last administered on 12/17/18at 10:54; Admin Dose 1 TAB; Start 12/16/18 at 01:30 Ibuprofen (Motrin) 400 mg Q6H PRN PO PAIN LEVEL 1-3 OR FEVER; Start 12/16/18 at 01:30 Zolpidem Tartrate (Ambien) 5 mg HS MAY REPEAT X 1 PRN PO INSOMNIA; Start 12/16/18 at 01:30 Piperacillin Sod/ Tazobactam Sod 100 ml @ 200 mls/hr Q6 IVPB Last administered on 12/17/18at 05:21; Admin Dose 200 MLS/HR; Start 12/16/18 at 06:00 Colchicine (Colchicine) 0.6 mg BID PO Last administered on 12/17/18at 08:48; Admin Dose 0.6 MG; Start 12/16/18 at 09:00 Vancomycin HCl (Vanco Iv Per Pharmacy) VANCOMYCIN PER PHARMACY PER PROTOCOL XX ; Start 12/16/18 at 10:00 Enoxaparin Sodium (Lovenox) 30 mg DAILY SC Last administered on 12/17/18at 08:49; Admin Dose 30 MG; Start 12/17/18 at 09:00 Lactobacillus Acidophilus/ Rhamnosus (Culturelle) 1 cap BID PO Last administered on 12/17/18at 08:48; Admin Dose 1 CAP; Start 12/16/18 at 21:00 Albuterol (Ventolin Hfa) 2 puff Q4H RESP THERAPY PRN INH SHORTNESS OF BREATH; Start 12/16/18 at 13:00 Famotidine (Pepcid) 20 mg HS PO Last administered on 12/16/18at 20:29; Admin Dose 20 MG; Start 12/16/18 at 21:00 Vancomycin HCl 100 ml @ 100 mls/hr Q12H IVPB Last administered on 12/17/18at 00:31; Admin Dose 100 MLS/HR; Start 12/17/18 at 00:00 Assessment/Plan Hospital Course (Demo Recall) 68-year-old male presented to the emergency room with complaint of fever and left testicular pain. 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 He also is known to have a history of prostate cancer status post radiation. Prior to that the patient did have transurethral resection of the prostate. Regular follow-up cystoscopy was done recently and was negative for cancer. On the physical exam he does have redness and erythema of the left side of the scrotum with a hard testicle and epididymis consistent with epididymitis. Patient is feeling better, he has less pain. The left testis is still hard and painful on palpation. His white count is gradually coming down. The urine culture did not grow anything because probably he was already on antibiotic. Continue present treatment LISBETH CARLISLE MD Dec 17, 2018 11:14
[2018-12-17 13:50] VITALS: BP 93/51; PULSE 87; RESP 18
--- NOTE | 2018-12-17 14:29 | PN ---
Date/Time of Note Date/Time of Note DATE: 12/17/18 TIME: 14:29 Assessment/Plan VTE Prophylaxis Risk score (from Nsg)>0 risk: 3 SCD applied (from Ns): Yes SCD contraindicated: low risk/ambulating Pharmacological prophylaxis: LMWH Lines/Catheters IV Catheter Type (from Nrsg): Peripheral IV Assessment/Plan Hospital Course Assessment and plan 1. Sepsis, stable follow-up on cultures 2. Left epididymitis, continue antibiotics 3. 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 History of prostate cancer status post radiation 5. BPH status post TURP 6. Tobacco abuse status post counseling 7. Emphysema 8. Anemia 9. Multiple pulmonary nodules, consider outpatient oncology/biopsy 10. Subjective: /4 left testicular pain. Less fever. Occasional loose bowel movements. No nausea vomiting or ill foods. /5 feels better. Less fever. Objective: Vss Physical exam No pallor Regular Clear no tachypnea Benign; less left testicular tenderness No edema/Homans Result Diagram: 12/17/18 0539 12/17/18 0539 Results 24hrs Laboratory Tests Test 12/17/18 05:39 White Blood Count 13.0 #H Red Blood Count 3.48 L Hemoglobin 9.9 L Hematocrit 30.9 L Mean Corpuscular Volume 88.8 Mean Corpuscular Hemoglobin 28.4 L Mean Corpuscular Hemoglobin Concent 32.0 Red Cell Distribution Width 15.5 H Platelet Count 411 Mean Platelet Volume 9.8 Immature Granulocytes % 0.700 H Neutrophils % 69.4 Lymphocytes % 16.5 Monocytes % 9.8 Eosinophils % 2.6 Basophils % 1.0 Nucleated Red Blood Cells % 0.0 Immature Granulocytes # 0.090 H Neutrophils # 9.0 H Lymphocytes # 2.1 Monocytes # 1.3 H Eosinophils # 0.3 Basophils # 0.1 Nucleated Red Blood Cells # 0.0 Sodium Level 141 Potassium Level 3.8 Chloride Level 109 Carbon Dioxide Level 24 Anion Gap 8 Blood Urea Nitrogen 10 Creatinine 0.76 Est Glomerular Filtrat Rate mL/min > 60 Glucose Level 100 Hemoglobin A1c 5.3 Calcium Level 8.7 Phosphorus Level 2.8 Magnesium Level 1.9 Total Bilirubin 0.4 Direct Bilirubin 0.00 Indirect Bilirubin 0.4 Aspartate Amino Transf (AST/SGOT) 29 Alanine Aminotransferase (ALT/SGPT) 39 Alkaline Phosphatase 76 Total Protein 6.5 Albumin 3.1 L Globulin 3.40 H Albumin/Globulin Ratio 0.91 Thyroid Stimulating Hormone (TSH) 2.240 Exam/Review of Systems Exam Vitals Vital Signs Date Temp Pulse Resp B/P (MAP) Pulse Ox O2 O2 Flow FiO2 Time Delivery Rate 12/17/18 98.7 87 18 93/51 (65) 97 13:50 12/16/18 Room Air 14:55 Intake and Output 12/16/18 12/16/18 12/17/18 1515:00 23:00 07:00 IntakeIntake Total 1170 ml 1400 ml 1300 ml BalanceBalance 1170 ml 1400 ml 1300 ml Results Results 24hrs Laboratory Tests Test 12/17/18 05:39 White Blood Count 13.0 #H Red Blood Count 3.48 L Hemoglobin 9.9 L Hematocrit 30.9 L Mean Corpuscular Volume 88.8 Mean Corpuscular Hemoglobin 28.4 L Mean Corpuscular Hemoglobin Concent 32.0 Red Cell Distribution Width 15.5 H Platelet Count 411 Mean Platelet Volume 9.8 Immature Granulocytes % 0.700 H Neutrophils % 69.4 Lymphocytes % 16.5 Monocytes % 9.8 Eosinophils % 2.6 Basophils % 1.0 Nucleated Red Blood Cells % 0.0 Immature Granulocytes # 0.090 H Neutrophils # 9.0 H Lymphocytes # 2.1 Monocytes # 1.3 H Eosinophils # 0.3 Basophils # 0.1 Nucleated Red Blood Cells # 0.0 Sodium Level 141 Potassium Level 3.8 Chloride Level 109 Carbon Dioxide Level 24 Anion Gap 8 Blood Urea Nitrogen 10 Creatinine 0.76 Est Glomerular Filtrat Rate mL/min > 60 Glucose Level 100 Hemoglobin A1c 5.3 Calcium Level 8.7 Phosphorus Level 2.8 Magnesium Level 1.9 Total Bilirubin 0.4 Direct Bilirubin 0.00 Indirect Bilirubin 0.4 Aspartate Amino Transf (AST/SGOT) 29 Alanine Aminotransferase (ALT/SGPT) 39 Alkaline Phosphatase 76 Total Protein 6.5 Albumin 3.1 L Globulin 3.40 H Albumin/Globulin Ratio 0.91 Thyroid Stimulating Hormone (TSH) 2.240 Medications Medication Current Medications Sodium Chloride 1,000 ml @ 50 mls/hr Q20H IV Last administered on 12/17/18at 05 :21; Admin Dose 100 MLS/HR; Start 12/16/18 at 01:13 IV Flush (NS 3 ml) 3 ml PER PROTOCOL IV ; Start 12/16/18 at 01:30 Ondansetron HCl (Zofran Inj) 4 mg Q6H PRN IV NAUSEA/VOMITING; Start 12/16/18 at 01:30 Acetaminophen (Tylenol Tab) 650 mg Q6H PRN PO .PAIN 1-3 OR TEMP; Start 12/16/18 at 01:30 Morphine Sulfate (morphine) 2 mg Q4H PRN IV .SEVERE PAIN 7-10; Start 12/16/18 at 01:30 Albuterol/ Ipratropium (Duoneb) 3 ml Q2H RESP THERAPY PRN HHN SHORTNESS OF BREATH; Start 12/16/18 at 01:30 Acetaminophen/ Hydrocodone Bitart ([place] (10/325)) 1 tab Q4H PRN PO PAIN Last administered on 12/17/18at 10:54; Admin Dose 1 TAB; Start 12/16/18 at 01:30 Ibuprofen (Motrin) 400 mg Q6H PRN PO PAIN LEVEL 1-3 OR FEVER; Start 12/16/18 at 01:30 Zolpidem Tartrate (Ambien) 5 mg HS MAY REPEAT X 1 PRN PO INSOMNIA; Start 12/16/18 at 01:30 Piperacillin Sod/ Tazobactam Sod 100 ml @ 200 mls/hr Q6 IVPB Last administered on 12/17/18at 12:28; Admin Dose 200 MLS/HR; Start 12/16/18 at 06:00 Colchicine (Colchicine) 0.6 mg BID PO Last administered on 12/17/18at 08:48; Admin Dose 0.6 MG; Start 12/16/18 at 09:00 Vancomycin HCl (Vanco Iv Per Pharmacy) VANCOMYCIN PER PHARMACY PER PROTOCOL XX ; Start 12/16/18 at 10:00 Enoxaparin Sodium (Lovenox) 30 mg DAILY SC Last administered on 12/17/18at 08:49; Admin Dose 30 MG; Start 12/17/18 at 09:00 Lactobacillus Acidophilus/ Rhamnosus (Culturelle) 1 cap BID PO Last administered on 12/17/18at 08:48; Admin Dose 1 CAP; Start 12/16/18 at 21:00 Albuterol (Ventolin Hfa) 2 puff Q4H RESP THERAPY PRN INH SHORTNESS OF BREATH; Start 12/16/18 at 13:00 Famotidine (Pepcid) 20 mg HS PO Last administered on 12/16/18at 20:29; Admin Dose 20 MG; Start 12/16/18 at 21:00 Vancomycin HCl 100 ml @ 100 mls/hr Q12H IVPB Last administered on 12/17/18at 12:28; Admin Dose 100 MLS/HR; Start 12/17/18 at 00:00 Miscellaneous Information (*Rx Drug Level Order Reminder*) VANCO TROUGH 12/17 @ 2,300 2300 ONCE XX ; Start 12/17/18 at 23:00; Stop 12/17/18 at 23:01 EMIR MAGANA MD Dec 17, 2018 14:29
[2018-12-17 20:00] VITALS: BP 100/60; PULSE 82; RESP 18
[2018-12-17] MEDS: FAMOTIDINE 20 MG TAB PO SCH (20:52)
[2018-12-18] MEDS ORDERED: VANCOMYCIN 500 MG (PMX) 100 ML IVPB SCH
[2018-12-18 02:33] VITALS: BP 110/53; PULSE 82; RESP 20
[2018-12-18] MEDS: ZOLPIDEM 5 MG TAB PO PRN (03:09)
[2018-12-18] MEDS: PIPER-TAZO 3.375 GM IV (PMX) 100 ML IVPB SCH ×4 (05:39→23:20)
[2018-12-18 08:00] VITALS: BP 119/57; PULSE 94; RESP 19
[2018-12-18] MEDS: LACTOBACILLUS RHAMNOSUS CAP PO SCH ×2 (09:04→20:41)
[2018-12-18] MEDS: COLCHICINE 0.6 MG CAP PO SCH ×2 (09:05→20:41)
[2018-12-18] MEDS: ENOXAPARIN 30 MG/0.3 ML SYG SC SCH (09:08)
--- NOTE | 2018-12-18 10:36 | CONS ---
Consult Date/Type/Reason Admit Date/Time Dec 15, 2018 at 23:55 Initial Consult Date 12/15/18 Type of Consultation: Urology Reason for Consultation Left epididymitis Requesting Provider: JUAN GALVAN MD Date/Time of Note DATE: 12/18/18 TIME: 10:34 Subjective Patient continues to complain of pain in his left testicle Objective Vitals Vital Signs Date Temp Pulse Resp B/P (MAP) Pulse Ox O2 O2 Flow FiO2 Time Delivery Rate 12/18/18 99.8 94 19 119/57 95 Room Air 08:00 (77) Intake and Output 12/17/18 12/17/18 12/18/18 1515:00 23:00 07:00 IntakeIntake Total 1000 ml 1460 ml 1200 ml BalanceBalance 1000 ml 1460 ml 1200 ml Exam The left testicle is hard and the scrotal skin is erythematous. Results/Medications Result Diagram: 12/17/18 0539 12/17/18 0539 Results 24 hrs Laboratory Tests Test 12/17/18 23:01 Vancomycin Level Trough 6.7 L Home Meds Reported Medications Hydrocodone/Acetaminophen ([place] 10-325 Tablet) 1 Each Tablet, 1 EACH PO Q6 PRN for PAIN, TAB 12/16/18 Acetaminophen* (Tylophen*) 500 Mg Capsule, 500 MG PO QHS PRN for INSOMNIA, TAB with Temazepam 12/16/18 Temazepam* (Temazepam*) 30 Mg Capsule, 30 MG PO HS PRN for INSOMNIA, CAP 12/16/18 Amoxicillin* (Amoxicillin*) 500 Mg Cap, 500 MG PO BID 12/16/18 Colchicine (Colchicine) 0.6 Mg Capsule, 0.6 MG PO BID 12/16/18 Ibuprofen* (Ibuprofen*) 400 Mg Tablet, 400 MG PO Q6H PRN for PAIN LEVEL 1-3 OR FEVER for 30 Days 12/16/18 Propranolol Hcl* (Propranolol Hcl*) 20 Mg Tablet, 20 MG PO BID for 30 Days, #60 12/16/18 Temazepam* (Temazepam*) 30 Mg Capsule, 30 MG PO HS PRN for INSOMNIA, CAP 06/01/14 Hydrocodone Bit-Acetaminophen* ([place]*) 10-325 Mg Tablet, 1 TAB PO Q4H PRN for PAIN, TAB 06/01/14 Discontinued Reported Medications Ciprofloxacin Hcl* (Ciprofloxacin Hcl*) 500 Mg Tablet, 500 MG PO BID for 5 Days, TAB 0 Refills 06/02/14 Propranolol Hcl* (Propranolol Hcl*) 40 Mg Tablet, 40 MG PO BID, TAB 06/01/14 Discontinued Scripts Magnesium Hydroxide* (Becerril' MOM*) 30 Ml Susp, 30 ML PO DAILY PRN for CONSTIPATION, #120 BOTTLE Prov:LISBETH CARLISLE MD 06/02/14 Docusate Sodium* (Colace*) 100 Mg Cap, 100 MG PO BID, #60 CAP Prov:LISBETH CARLISLE MD 06/02/14 Medications Current Medications Sodium Chloride 1,000 ml @ 50 mls/hr Q20H IV Last administered on 12/17/18at 20:52; Admin Dose 50 MLS/HR; Start 12/16/18 at 01:13 IV Flush (NS 3 ml) 3 ml PER PROTOCOL IV ; Start 12/16/18 at 01:30 Ondansetron HCl (Zofran Inj) 4 mg Q6H PRN IV NAUSEA/VOMITING; Start 12/16/18 at 01:30 Acetaminophen (Tylenol Tab) 650 mg Q6H PRN PO .PAIN 1-3 OR TEMP; Start 12/16/18 at 01:30 Morphine Sulfate (morphine) 2 mg Q4H PRN IV .SEVERE PAIN 7-10; Start 12/16/18 at 01:30 Albuterol/ Ipratropium (Duoneb) 3 ml Q2H RESP THERAPY PRN HHN SHORTNESS OF BREATH; Start 12/16/18 at 01:30 Acetaminophen/ Hydrocodone Bitart ([place] (10/325)) 1 tab Q4H PRN PO PAIN Last administered on 12/17/18at 23:27; Admin Dose 1 TAB; Start 12/16/18 at 01:30 Ibuprofen (Motrin) 400 mg Q6H PRN PO PAIN LEVEL 1-3 OR FEVER; Start 12/16/18 at 01:30 Zolpidem Tartrate (Ambien) 5 mg HS MAY REPEAT X 1 PRN PO INSOMNIA Last administered on 12/18/18 03:09; Admin Dose 5 MG; Start 12/16/18 at 01:30 Piperacillin Sod/ Tazobactam Sod 100 ml @ 200 mls/hr Q6 IVPB Last administered on 12/18/18at 05:39; Admin Dose 200 MLS/HR; Start 12/16/18 at 06:00 Colchicine (Colchicine) 0.6 mg BID PO Last administered on 12/18/18at 09:05; A dmin Dose 0.6 MG; Start 12/16/18 at 09:00 Vancomycin HCl (Vanco Iv Per Pharmacy) VANCOMYCIN PER PHARMACY PER PROTOCOL XX ; Start 12/16/18 at 10:00 Enoxaparin Sodium (Lovenox) 30 mg DAILY SC Last administered on 12/18/18at 09:08; Admin Dose 30 MG; Start 12/17/18 at 09:00 Lactobacillus Acidophilus/ Rhamnosus (Culturelle) 1 cap BID PO Last administered on 12/18/18at 09:04; Admin Dose 1 CAP; Start 12/16/18 at 21:00 Albuterol (Ventolin Hfa) 2 puff Q4H RESP THERAPY PRN INH SHORTNESS OF BREATH; Start 12/16/18 at 13:00 Famotidine (Pepcid) 20 mg HS PO Last administered on 12/17/18at 20:52; Admin Dose 20 MG; Start 12/16/18 at 21:00 Vancomycin HCl 250 ml @ 125 mls/hr Q12H IVPB ; Start 12/18/18 at 13:00 Assessment/Plan Hospital Course (Demo Recall) 68-year-old male presented to the emergency room with complaint of fever and left testicular pain. 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 He also is known to have a history of prostate cancer status post radiation. Prior to that the patient did have transurethral resection of the prostate. Regular follow-up cystoscopy was done recently and was negative for cancer. On the physical exam he does have redness and erythema of the left side of the scrotum with a hard testicle and epididymis consistent with epididymitis. Patient is feeling better but he still has pain. The left testis is still hard and painful on palpation. His white count is gradually coming down 13.0 today. The urine culture did not grow anything because probably he was already on antibiotic. Continue present treatment LISBETH CARLISLE MD Dec 18, 2018 10:36
[2018-12-18] MEDS: VANCOMYCIN 1 GM 250 ML IVPB SCH (13:19)
[2018-12-18 14:00] VITALS: BP 127/67; PULSE 85; RESP 19
[2018-12-18] MEDS: HYDROCODONE/APAP (10/325) TAB PO PRN ×2 (17:03→23:20)
[2018-12-18] MEDS: SOD CHLORIDE 0.9% 1,000 ML IV SCH (17:49)
--- NOTE | 2018-12-18 19:20 | PN ---
Date/Time of Note Date/Time of Note DATE: 12/18/18 TIME: 19:18 Assessment/Plan VTE Prophylaxis Risk score (from Nsg)>0 risk: 5 SCD applied (from Nsg): Yes SCD contraindicated: low risk/ambulating Pharmacological prophylaxis: LMWH Lines/Catheters IV Catheter Type (from Nrsg): Peripheral IV Assessment/Plan Hospital Course A/P 1. Sepsis, stable follow-up on cultures 2. Left epididymitis, continue antibiotics 3. H/o right renal cell transitional cell cancer status post surgery 4. H/o prostate ca sp radiation 5. BPH sp TURP 6. Tobacco abuse sp counseling 7. Emphysema 8. Anemia 9. Multiple pulmonary nodules, consider outpt oncology/biopsy S: 12/16 left testicular pain. Less fever. Occasional loose bowel movements. No nausea vomiting or ill foods. 12/17 feels better. Less fever. O: Vss PE No pallor Reg Clear no tachypnea Benign; less lt testicular tenderness No edema/Homans Result Diagram: 12/17/18 0539 12/17/18 0539 Results 24hrs Laboratory Tests Test 12/17/18 23:01 Vancomycin Level Trough 6.7 L Exam/Review of Systems Exam Vitals Vital Signs Date Temp Pulse Resp B/P (MAP) Pulse Ox O2 O2 Flow FiO2 Time Delivery Rate 12/18/18 99.1 85 19 127/67 94 Room Air 14:00 (87) Intake and Output 12/17/18 12/17/18 12/18/18 1515:00 23:00 07:00 IntakeIntake Total 1000 ml 1460 ml 1200 ml BalanceBalance 1000 ml 1460 ml 1200 ml Results Results 24hrs Laboratory Tests Test 12/17/18 23:01 Vancomycin Level Trough 6.7 L Medications Medication Current Medications Sodium Chloride 1,000 ml @ 50 mls/hr Q20H IV Last administered on 12/17/18at 20:52; Admin Dose 50 MLS/HR; Start 12/16/18 at 01:13 IV Flush (NS 3 ml) 3 ml PER PROTOCOL IV ; Start 12/16/18 at 01:30 Ondansetron HCl (Zofran Inj) 4 mg Q6H PRN IV NAUSEA/VOMITING; Start 12/16/18 at 01:30 Acetaminophen (Tylenol Tab) 650 mg Q6H PRN PO .PAIN 1-3 OR TEMP; Start 12/16/18 at 01:30 Morphine Sulfate (morphine) 2 mg Q4H PRN IV .SEVERE PAIN 7-10; Start 12/16/18 at 01:30 Albuterol/ Ipratropium (Duoneb) 3 ml Q2H RESP THERAPY PRN HHN SHORTNESS OF BREATH; Start 12/16/18 at 01:30 Acetaminophen/ Hydrocodone Bitart ([place] (10/325)) 1 tab Q4H PRN PO PAIN Last administered on 12/18/18 17:03; Admin Dose 1 TAB; Start 12/16/18 at 01:30 Ibuprofen (Motrin) 400 mg Q6H PRN PO PAIN LEVEL 1-3 OR FEVER; Start 12/16/18 at 01:30 Zolpidem Tartrate (Ambien) 5 mg HS MAY REPEAT X 1 PRN PO INSOMNIA Last administered on 12/18/18 03:09; Admin Dose 5 MG; Start 12/16/18 at 01:30 Piperacillin Sod/ Tazobactam Sod 100 ml @ 200 mls/hr Q6 IVPB Last administered on 12/18/18 17:03; Admin Dose 200 MLS/HR; Start 12/16/18 at 06:00 Colchicine (Colchicine) 0.6 mg BID PO Last administered on 12/18/18 09:05; Admin Dose 0.6 MG; Start 12/16/18 at 09:00 Vancomycin HCl (Vanco Iv Per Pharmacy) VANCOMYCIN PER PHARMACY PER PROTOCOL XX ; Start 12/16/18 at 10:00 Enoxaparin Sodium (Lovenox) 30 mg DAILY SC Last administered on 12/18/18at 09:08; Admin Dose 30 MG; Start 12/17/18 at 09:00 Lactobacillus Acidophilus/ Rhamnosus (Culturelle) 1 cap BID PO Last administered on 12/18/18 09:04; Admin Dose 1 CAP; Start 12/16/18 at 21:00 Albuterol (Ventolin Hfa) 2 puff Q4H RESP THERAPY PRN INH SHORTNESS OF BREATH; Start 12/16/18 at 13:00 Famotidine (Pepcid) 20 mg HS PO Last administered on 12/17/18at 20:52; Admin Dose 20 MG; Start 12/16/18 at 21:00 Vancomycin HCl 250 ml @ 125 mls/hr Q12H IVPB Last administered on 12/18/18at 13:19; Admin Dose 125 MLS/HR; Start 12/18/18 at 13:00 EMIR MAGANA MD Dec 18, 2018 19:20
[2018-12-18 20:07] VITALS: BP 102/55; PULSE 78; RESP 20
[2018-12-18] MEDS: FAMOTIDINE 20 MG TAB PO SCH (20:41)
[2018-12-19] MEDS: ZOLPIDEM 5 MG TAB PO PRN (00:49)
[2018-12-19] MEDS: VANCOMYCIN 1 GM 250 ML IVPB SCH (00:49)
[2018-12-19 02:31] VITALS: BP 99/52; PULSE 72; RESP 18
[2018-12-19] MEDS: PIPER-TAZO 3.375 GM IV (PMX) 100 ML IVPB SCH ×4 (05:41→23:45)
[2018-12-19 08:00] VITALS: BP_SYST 106; BP_SYST 117; BP_DIAS 56; BP_DIAS 72; PULSE 78; PULSE 89; RESP 18; RESP 20
[2018-12-19] MEDS: COLCHICINE 0.6 MG CAP PO SCH ×2 (08:51→21:25)
[2018-12-19] MEDS: LACTOBACILLUS RHAMNOSUS CAP PO SCH ×2 (08:51→21:26)
[2018-12-19] MEDS: ENOXAPARIN 40 MG/0.4 ML SYG SC SCH (08:53)
[2018-12-19] MEDS: HYDROCODONE/APAP (10/325) TAB PO PRN ×3 (09:01→23:03)
[2018-12-19] MEDS: DIPHENHYDRAMINE 25 MG CAP PO SCH ×2 (13:00→21:00)
[2018-12-19 14:00] VITALS: BP 112/57; PULSE 76; RESP 20
[2018-12-19] MEDS: FAMOTIDINE 20 MG TAB PO SCH ×2 (14:43→21:26)
[2018-12-19] MEDS: DIPHENHYDRAMINE 1%/ZINC 28.3 GM CR TOP SCH ×2 (15:30→21:27)
--- NOTE | 2018-12-19 17:18 | PN ---
Date/Time of Note Date/Time of Note DATE: 12/19/18 TIME: 17:16 Assessment/Plan VTE Prophylaxis Risk score (from Ns)>0 risk: 2 SCD applied (from Ns): Yes SCD contraindicated: low risk/ambulating Pharmacological prophylaxis: LMWH Lines/Catheters IV [facility]from [facility] [place] Assessment/Plan Hospital Course A/P 1. Sepsis, stable follow-up on cultures discontinue vancomycin. 2. Left epididymitis, continue antibiotics. taper to po's? 3. H/o right renal cell transitional cell cancer status post surgery 4. H/o prostate ca sp radiation 5. BPH sp TURP 6. Tobacco abuse sp counseling 7. Emphysema 8. Anemia 9. Multiple pulmonary nodules, consider outpt oncology/biopsy 10. Rash: Heat rash vs red man syndrome from [facility]. Stable, dc vancomycin continue supportive care. S: 7 left testicular pain. Less fever. Occasional loose bowel movements. No nausea vomiting or ill foods. 7 feels better. Less fever. /6: No events 12/19: Itching and then rash on his back yesterday. No fever dyspnea. Less tender testes. O: Vss PE No pallor Reg Clear no tachypnea Benign; less lt testicular tenderness No edema Red Rash noted on back Result Diagram: 12/19/18 0517 12/19/18 0518 Results 24hrs Laboratory Tests Test 12/19/18 05:17 12/19/18 05:18 White Blood Count 7.8 # Red Blood Count 3.40 L Hemoglobin 10.0 L Hematocrit 30.3 L Mean Corpuscular Volume 89.1 Mean Corpuscular Hemoglobin 29.4 Mean Corpuscular Hemoglobin Concent 33.0 Red Cell Distribution Width 15.1 H Platelet Count 426 H Mean Platelet Volume 9.9 Immature Granulocytes % 0.500 H Neutrophils % 58.3 Lymphocytes % 25.2 Monocytes % 10.4 Eosinophils % 4.4 Basophils % 1.2 Nucleated Red Blood Cells % 0.0 Immature Granulocytes # 0.040 H Neutrophils # 4.5 Lymphocytes # 2.0 Monocytes # 0.8 Eosinophils # 0.3 Basophils # 0.1 Nucleated Red Blood Cells # 0.0 Sodium Level 143 Potassium Level 3.6 Chloride Level 111 H Carbon Dioxide Level 25 Anion Gap 7 Blood Urea Nitrogen 9 9 Creatinine 0.79 0.81 Est Glomerular Filtrat Rate mL/min > 60 Glucose Level 99 Calcium Level 8.8 Exam/Review of Systems Exam Vitals Vital Signs Date Temp Pulse Resp B/P (MAP) Pulse Ox O2 O2 Flow FiO2 Time Delivery Rate 12/19/18 98.6 76 20 112/57 96 14:00 (75) 12/18/18 Room Air 14:00 Intake and Output 12/18/18 12/18/18 12/19/18 1515:00 23:00 07:00 IntakeIntake Total 100 ml 1450 ml 700 ml BalanceBalance 100 ml 1450 ml 700 ml Results Results 24hrs Laboratory Tests Test 12/19/18 05:17 12/19/18 05:18 White Blood Count 7.8 # Red Blood Count 3.40 L Hemoglobin 10.0 L Hematocrit 30.3 L Mean Corpuscular Volume 89.1 Mean Corpuscular Hemoglobin 29.4 Mean Corpuscular Hemoglobin Concent 33.0 Red Cell Distribution Width 15.1 H Platelet Count 426 H Mean Platelet Volume 9.9 Immature Granulocytes % 0.500 H Neutrophils % 58.3 Lymphocytes % 25.2 Monocytes % 10.4 Eosinophils % 4.4 Basophils % 1.2 Nucleated Red Blood Cells % 0.0 Immature Granulocytes # 0.040 H Neutrophils # 4.5 Lymphocytes # 2.0 Monocytes # 0.8 Eosinophils # 0.3 Basophils # 0.1 Nucleated Red Blood Cells # 0.0 Sodium Level 143 Potassium Level 3.6 Chloride Level 111 H Carbon Dioxide Level 25 Anion Gap 7 Blood Urea Nitrogen 9 9 Creatinine 0.79 0.81 Est Glomerular Filtrat Rate mL/min > 60 Glucose Level 99 Calcium Level 8.8 Medications Medication Current Medications IV Flush (NS 3 ml) 3 ml PER PROTOCOL IV ; Start 12/16/18 at 01:30 Ondansetron HCl (Zofran Inj) 4 mg Q6H PRN IV NAUSEA/VOMITING; Start 12/16/18 at 01:30 Acetaminophen (Tylenol Tab) 650 mg Q6H PRN PO .PAIN 1-3 OR TEMP; Start 12/16/18 at 01:30 Morphine Sulfate (morphine) 2 mg Q4H PRN IV .SEVERE PAIN 7-10; Start 12/16/18 at 01:30 Albuterol/ Ipratropium (Duoneb) 3 ml Q2H RESP THERAPY PRN HHN SHORTNESS OF BREATH; Start 12/16/18 at 01:30 Acetaminophen/ Hydrocodone Bitart ([place] (10/325)) 1 tab Q4H PRN PO PAIN Last a dministered on 12/19/18 14:40; Admin Dose 1 TAB; Start 12/16/18 at 01:30 Ibuprofen (Motrin) 400 mg Q6H PRN PO PAIN LEVEL 1-3 OR FEVER; Start 12/16/18 at 01:30 Piperacillin Sod/ Tazobactam Sod 100 ml @ 200 mls/hr Q6 IVPB Last administered on 12/19/18 12:29; Admin Dose 200 MLS/HR; Start 12/16/18 at 06:00 Colchicine (Colchicine) 0.6 mg BID PO Last administered on 12/19/18 08:51; Admin Dose 0.6 MG; Start 12/16/18 at 09:00 Lactobacillus Acidophilus/ Rhamnosus (Culturelle) 1 cap BID PO Last administe red on 12/19/18 08:51; Admin Dose 1 CAP; Start 12/16/18 at 21:00 Albuterol (Ventolin Hfa) 2 puff Q4H RESP THERAPY PRN INH SHORTNESS OF BREATH; Start 12/16/18 at 13:00 Enoxaparin Sodium (Lovenox) 40 mg DAILY SC Last administered on 12/19/18 08:53; Admin Dose 40 MG; Start 12/19/18 at 09:00 Diphenhydramine HCl (Benadryl) 25 mg TID PO ; Start 12/19/18 at 13:00; Stop 12/21/18 at 13:00 Famotidine (Pepcid) 20 mg BID PO Last administered on 12/19/18 14:43; Admin Dose 20 MG; Start 12/19/18 at 15:00 Diphenhydramine/ Zinc Oxide (Benadryl 1% Cr) 1 applic Q12 TOP ; Start 12/19/18 at 15:30 EMIR MAGANA MD Dec 19, 2018 17:18
--- NOTE | 2018-12-19 19:19 | CONS ---
Consult Date/Type/Reason Admit Date/Time Dec 15, 2018 at 23:55 Initial Consult Date 12/15/18 Type of Consultation: Urology Reason for Consultation Left epididymitis Requesting Provider: JUAN GALVAN MD Date/Time of Note DATE: 12/19/18 TIME: 19:16 Subjective Patient is feeling less pain and he is more comfortable today Objective Vitals Vital Signs Date Temp Pulse Resp B/P (MAP) Pulse Ox O2 O2 Flow FiO2 Time Delivery Rate 12/19/18 98.6 76 20 112/57 96 14:00 (75) 12/18/18 Room Air 14:00 Intake and Output 12/18/18 12/18/18 12/19/18 1414:59 22:59 06:59 IntakeIntake Total 100 ml 1450 ml 700 ml BalanceBalance 100 ml 1450 ml 700 ml Exam The left testis still hard but has less pain and erythema Results/Medications Result Diagram: 12/19/18 0517 12/19/18 0518 Results 24 hrs Laboratory Tests Test 12/19/18 05:17 12/19/18 05:18 White Blood Count 7.8 # Red Blood Count 3.40 L Hemoglobin 10.0 L Hematocrit 30.3 L Mean Corpuscular Volume 89.1 Mean Corpuscular Hemoglobin 29.4 Mean Corpuscular Hemoglobin Concent 33.0 Red Cell Distribution Width 15.1 H Platelet Count 426 H Mean Platelet Volume 9.9 Immature Granulocytes % 0.500 H Neutrophils % 58.3 Lymphocytes % 25.2 Monocytes % 10.4 Eosinophils % 4.4 Basophils % 1.2 Nucleated Red Blood Cells % 0.0 Immature Granulocytes # 0.040 H Neutrophils # 4.5 Lymphocytes # 2.0 Monocytes # 0.8 Eosinophils # 0.3 Basophils # 0.1 Nucleated Red Blood Cells # 0.0 Sodium Level 143 Potassium Level 3.6 Chloride Level 111 H Carbon Dioxide Level 25 Anion Gap 7 Blood Urea Nitrogen 9 9 Creatinine 0.79 0.81 Est Glomerular Filtrat Rate mL/min > 60 Glucose Level 99 Calcium Level 8.8 Home Meds Reported Medications Hydrocodone/Acetaminophen ([place] 10-325 Tablet) 1 Each Tablet, 1 EACH PO Q6 PRN for PAIN, TAB 12/16/18 Acetaminophen* (Tylophen*) 500 Mg Capsule, 500 MG PO QHS PRN for INSOMNIA, TAB with Temazepam 12/16/18 Temazepam* (Temazepam*) 30 Mg Capsule, 30 MG PO HS PRN for INSOMNIA, CAP 12/16/18 Amoxicillin* (Amoxicillin*) 500 Mg Cap, 500 MG PO BID 12/16/18 Colchicine (Colchicine) 0.6 Mg Capsule, 0.6 MG PO BID 12/16/18 Ibuprofen* (Ibuprofen*) 400 Mg Tablet, 400 MG PO Q6H PRN for PAIN LEVEL 1-3 OR FEVER for 30 Days 12/16/18 Propranolol Hcl* (Propranolol Hcl*) 20 Mg Tablet, 20 MG PO BID for 30 Days, #60 12/16/18 Temazepam* (Temazepam*) 30 Mg Capsule, 30 MG PO HS PRN for INSOMNIA, CAP 06/01/14 Hydrocodone Bit-Acetaminophen* ([place]*) 10-325 Mg Tablet, 1 TAB PO Q4H PRN for PAIN, TAB 06/01/14 Discontinued Reported Medications Ciprofloxacin Hcl* (Ciprofloxacin Hcl*) 500 Mg Tablet, 500 MG PO BID for 5 Days, TAB 0 Refills 06/02/14 Propranolol Hcl* (Propranolol Hcl*) 40 Mg Tablet, 40 MG PO BID, TAB 06/01/14 Discontinued Scripts Magnesium Hydroxide* (Becerril' MOM*) 30 Ml Susp, 30 ML PO DAILY PRN for CONSTIPATION, #120 BOTTLE Prov:LISBETH CARLISLE MD 06/02/14 Docusate Sodium* (Colace*) 100 Mg Cap, 100 MG PO BID, #60 CAP Prov:LISBETH CARLISLE MD 06/02/14 Medications Current Medications IV Flush (NS 3 ml) 3 ml PER PROTOCOL IV ; Start 12/16/18 at 01:30 Ondansetron HCl (Zofran Inj) 4 mg Q6H PRN IV NAUSEA/VOMITING; Start 12/16/18 at 01:30 Acetaminophen (Tylenol Tab) 650 mg Q6H PRN PO .PAIN 1-3 OR TEMP; Start 12/16/18 at 01:30 Morphine Sulfate (morphine) 2 mg Q4H PRN IV .SEVERE PAIN 7-10; Start 12/16/18 at 01:30 Albuterol/ Ipratropium (Duoneb) 3 ml Q2H RESP THERAPY PRN HHN SHORTNESS OF BREATH; Start 12/16/18 at 01:30 Acetaminophen/ Hydrocodone Bitart ([place] (10/325)) 1 tab Q4H PRN PO PAIN Last administered on 12/19/18 14:40; Admin Dose 1 TAB; Start 12/16/18 at 01:30 Ibuprofen (Motrin) 400 mg Q6H PRN PO PAIN LEVEL 1-3 OR FEVER; Start 12/16/18 at 01:30 Piperacillin Sod/ Tazobactam Sod 100 ml @ 200 mls/hr Q6 IVPB Last administered on 12/19/18 18:04; Admin Dose 200 MLS/HR; Start 12/16/18 at 06:00 Colchicine (Colchicine) 0.6 mg BID PO Last administered on 12/19/18 08:51; Admin Dose 0.6 MG; Start 12/16/18 at 09:00 Lactobacillus Acidophilus/ Rhamnosus (Culturelle) 1 cap BID PO Last administered on 12/19/18 08:51; Admin Dose 1 CAP; Start 12/16/18 at 21:00 Albuterol (Ventolin Hfa) 2 puff Q4H RESP THERAPY PRN INH SHORTNESS OF BREATH; Start 12/16/18 at 13:00 Enoxaparin Sodium (Lovenox) 40 mg DAILY SC Last administered on 12/19/18at 08:53; Admin Dose 40 MG; Start 12/19/18 at 09:00 Diphenhydramine HCl (Benadryl) 25 mg TID PO ; Start 12/19/18 at 13:00; Stop 12/21/18 at 13:00 Famotidine (Pepcid) 20 mg BID PO Last administered on 12/19/18at 14:43; Admin Dose 20 MG; Start 12/19/18 at 15:00 Diphenhydramine/ Zinc Oxide (Benadryl 1% Cr) 1 applic Q12 TOP ; Start 12/19/18 at 15:30 Assessment/Plan Hospital Course (Demo Recall) 68-year-old male presented to the emergency room with complaint of fever and left testicular pain. 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 He also is known to have a history of prostate cancer status post radiation. Prior to that the patient did have transurethral resection of the prostate. Regular follow-up cystoscopy was done recently and was negative for cancer. On the physical exam he does have redness and erythema of the left side of the scrotum with a hard testicle and epididymis consistent with epididymitis. Patient is feeling better but he still has pain. The erythema is less and so is the pain. But the testis will remain hard for up to 3 months before it goes back to normal consistency. I informed that to the patient so he does not get nervous. He may be discharged home tomorrow on Cipro and Bactrim. He should follow-up with my office in about 2 weeks to 3 weeks LISBETH CARLISLE MD Dec 19, 2018 19:19
[2018-12-19 20:34] VITALS: BP 124/58; PULSE 76; RESP 16
[2018-12-20] MEDS ORDERED: ZOLPIDEM 5 MG TAB PO ONE (00:30)
[2018-12-20] MEDS ORDERED: ZOLPIDEM 5 MG TAB PO PRN (01:30)
[2018-12-20 03:09] VITALS: BP 106/54; PULSE 81; RESP 16
[2018-12-20] MEDS: PIPER-TAZO 3.375 GM IV (PMX) 100 ML IVPB SCH (05:57)
[2018-12-20] MEDS: HYDROCODONE/APAP (10/325) TAB PO PRN (07:51)
[2018-12-20 08:26] VITALS: BP 109/53; PULSE 82; RESP 17
[2018-12-20] MEDS: COLCHICINE 0.6 MG CAP PO SCH (08:43)
[2018-12-20] MEDS: FAMOTIDINE 20 MG TAB PO SCH (08:43)
[2018-12-20] MEDS: DIPHENHYDRAMINE 25 MG CAP PO SCH ×2 (08:45→12:11)
[2018-12-20] MEDS: LACTOBACILLUS RHAMNOSUS CAP PO SCH (08:50)
[2018-12-20] MEDS: ENOXAPARIN 40 MG/0.4 ML SYG SC SCH (08:51)
[2018-12-20] MEDS: DIPHENHYDRAMINE 1%/ZINC 28.3 GM CR TOP SCH (08:57)
[2018-12-20] MEDS ORDERED: CIPROFLOXACIN 500 MG TAB PO SCH (11:00)
[2018-12-20] MEDS ORDERED: TRIMETHOPRIM/SULFAMETHOX (DS) TAB PO SCH (11:00)
[2018-12-20 14:00] VITALS: BP_SYST 100; BP_SYST 128; BP_DIAS 56; BP_DIAS 63; PULSE 69; PULSE 79; RESP 18
[2018-12-20] MEDS ORDERED: SULF-182 PO (15:15)
[2018-12-20] MEDS ORDERED: CIPR500T4 PO (15:15)
--- NOTE | 2018-12-20 15:21 | DS ---
Date/Time of Note Date/Time of Note DATE: 12/20/18 TIME: 15:16 Discharge Summary Admission/Discharge Info Admit Date/Time Dec 15, 2018 at 23:55 Discharge Date/Time Discharge Diagnosis 1. Sepsis, resolved 2. Left epididymitis, oral antibiotics, follow up with urology in two weeks 3. H/o right renal cell transitional cell cancer status post surgery 4. H/o prostate ca sp radiation 5. BPH sp TURP 6. Tobacco abuse sp counseling 7. Emphysema, stable 8. Anemia, chronic, follow up with PCP 9. Multiple pulmonary nodules, consider outpt oncology/biopsy 10. Rash: Heat rash vs red man syndrome from vanco. Stable, dc vancomycin continue supportive care. Patient Condition: Stable Hospital Course Patient is a 68-year-old male with a history of right kidney carcinoma status post nephrectomy, prostate cancer status post TURP and radiation. Patient presented to ER complaining of left testicular pain and redness. He recently had cystoscopy which was negative for malignancy. When the presents the ER, he was febrile with a temperature of 100.9. WBC 20,000. UA consistent with UTI. Patient has been on Cipro at home. 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 No residua l, recurrent or metastatic disease. Tiny nonobstructing left renal calculus. Parenchymal cyst left kidney. -Cholecystectomy. -Hepatic cysts. -Stable 8 mm nodule right lower lobe unchanged since 2012. -Mild scarring lung bases. -No evidence of diverticulitis. Nonvisualization appendix. Dedicated chest CT was done and it shows the following: -5.7 cm paramediastinal mass in the right upper lobe which abuts the superior right hilum, suspicious for a primary lung neoplasm. Diffuse interstitial opacities are seen along the periphery of the lesion, consistent with neoplastic infiltration into the lung. -Two left lower lobe nodules measuring up to 9 mm, suspicious for metastatic disease. -A few right paratracheal lymph nodes measuring up to 8 mm short axis. Although these are not technically enlarged by CT criteria, lymph node metastases cannot be excluded. -Moderate to severe centrilobular emphysema, in an upper lung predominant distribution. -Nonspecific 2.3 cm right adrenal gland nodule. Patient had left epididymitis that he is treated with antibiotics and symptoms are improving. He will continue on cipro and bactrim for 10 days and follow up with urology in two weeks. For the lung nodules, patient will follow up with PCP to refer him to pulmonology for further evaluation after infection is well controlled. Home Meds Active Scripts Sulfamethoxazole/Trimethoprim (Sulfamethoxazole-Tmp Ds Tablet) 1 Each Tablet, 1 TAB PO BID for 10 Days, TAB Prov:POOJA RODRIGEZ MD 12/20/18 Ciprofloxacin Hcl* (Ciprofloxacin Hcl*) 500 Mg Tablet, 500 MG PO BID@,18 for 10 Days, TAB Prov:POOJA RODRIGEZ MD 12/20/18 Reported Medications Acetaminophen* (Tylophen*) 500 Mg Capsule, 500 MG PO QHS PRN for INSOMNIA, TAB with Temazepam 12/16/18 Temazepam* (Temazepam*) 30 Mg Capsule, 30 MG PO HS PRN for INSOMNIA, CAP 12/16/18 Colchicine (Colchicine) 0.6 Mg Capsule, 0.6 MG PO BID 12/16/18 Ibuprofen* (Ibuprofen*) 400 Mg Tablet, 400 MG PO Q6H PRN for PAIN LEVEL 1-3 OR FEVER for 30 Days 12/16/18 Propranolol Hcl* (Propranolol Hcl*) 20 Mg Tablet, 20 MG PO BID for 30 Days, #60 12/16/18 Hydrocodone Bit-Acetaminophen* ([place]*) 10-325 Mg Tablet, 1 TAB PO Q4H PRN for PAIN, TAB 06/01/14 Discontinued Reported Medications Hydrocodone/Acetaminophen ([place] 10-325 Tablet) 1 Each Tablet, 1 EACH PO Q6 PRN for PAIN, TAB 12/16/18 Amoxicillin* (Amoxicillin*) 500 Mg Cap, 500 MG PO BID 12/16/18 Temazepam* (Temazepam*) 30 Mg Capsule, 30 MG PO HS PRN for INSOMNIA, CAP 06/01/14 Ciprofloxacin Hcl* (Ciprofloxacin Hcl*) 500 Mg Tablet, 500 MG PO BID for 5 Days, TAB 0 Refills 06/02/14 Propranolol Hcl* (Propranolol Hcl*) 40 Mg Tablet, 40 MG PO BID, TAB 06/01/14 Discontinued Scripts Magnesium Hydroxide* (Becerril' MOM*) 30 Ml Susp, 30 ML PO DAILY PRN for CONSTIPATION, #120 BOTTLE Prov:LISBETH CARLISLE MD 06/02/14 Docusate Sodium* (Colace*) 100 Mg Cap, 100 MG PO BID, #60 CAP Prov:LISBETH CARLISLE MD 06/02/14 Follow-up Plan PCP in one week for lung nodules urology in two weeks Primary Care Provider Not On Staff Doctor Pending Labs Laboratory Tests Test 12/20/18 06:17 White Blood Count 8.7 10^3/ul (4.8-10.8) Red Blood Count 3.55 10^6/ul (4.70-6.10) Hemoglobin 10.3 g/dl (14.0-18.0) Hematocrit 31.4 % (42.0-52.0) Mean Corpuscular Volume 88.5 fl (82.0-101.0) Mean Corpuscular Hemoglobin 29.0 pg (29.0-33.0) Mean Corpuscular Hemoglobin Concent 32.8 g/dl (32.0-37.0) Red Cell Distribution Width 15.3 % (11.5-14.5) Platelet Count 465 10^3/UL (140-415) Mean Platelet Volume 9.8 fl (7.4-10.4) Immature Granulocytes % 0.700 % (0.001-0.429) Neutrophils % 63.7 % (39.0-77.0) Lymphocytes % 21.4 % (15.0-51.0) Monocytes % 10.0 % (0.0-11.0) Eosinophils % 3.3 % (0.0-7.0) Basophils % 0.9 % (0.0-2.0) Nucleated Red Blood Cells % 0.0 /100WBC (0.0-0.0) Immature Granulocytes # 0.060 10^3/ul (0.0-0.031) Neutrophils # 5.6 10^3/ul (1.6-7.5) Lymphocytes # 1.9 10^3/ul (0.8-2.9) Monocytes # 0.9 10^3/ul (0.3-0.9) Eosinophils # 0.3 10^3/ul (0.0-0.5) Basophils # 0.1 10^3/ul (0.0-0.1) Nucleated Red Blood Cells # 0.0 10^3/ul (0.0-0.0) Sodium Level 141 mmol/L (135-144) Potassium Level 3.6 mmol/L (3.5-5.1) Chloride Level 109 mmol/L (97-110) Carbon Dioxide Level 24 mmol/L (21-31) Anion Gap 8 (5-13) Blood Urea Nitrogen 11 mg/dl (7-20) Creatinine 0.79 mg/dl (0.61-1.24) Est Glomerular Filtrat Rate mL/min > 60 mL/min (>60) Glucose Level 96 mg/dl (70-220) Calcium Level 8.9 mg/dl (8.4-10.2) Total Bilirubin 0.4 mg/dl (0.2-1.3) Direct Bilirubin 0.00 mg/dl (0.00-0.20) Indirect Bilirubin 0.4 mg/dl (0-1.1) Aspartate Amino Transf (AST/SGOT) 42 IU/L (15-46) Alanine Aminotransferase (ALT/SGPT) 47 IU/L (13-69) Alkaline Phosphatase 85 IU/L (42-121) Total Protein 6.8 g/dl (6.1-8.1) Albumin 3.3 g/dl (3.3-4.9) Globulin 3.50 g/dl (1.3-3.2) Albumin/Globulin Ratio 0.94 POOJA RODRIGEZ MD Dec 20, 2018 15:21
== END 2018-12-20 16:22 | disposition home or self-care (01) | DRG 872 ==
LOC: E/R 19:01 → PP2 23:55
PROVIDERS: ADMIT Internal Medicine; ATTEND Internal Medicine
DX: A41.9 Sepsis, unspecified organism (principal); J43.9 Emphysema, unspecified; N45.1 Epididymitis; N40.0 Benign prostatic hyperplasia without lower urinary tract symptoms; F17.200 Nicotine dependence, unspecified, uncomplicated; R21 Rash and other nonspecific skin eruption; Z90.5 Acquired absence of kidney; Z85.528 Personal history of other malignant neoplasm of kidney; Z85.46 Personal history of malignant neoplasm of prostate
CPT/HCPCS: 36415; 71045; 71260; 74176; 80048; 80053; 80202; 81001; 82565; 83036; 83605; 83735; 84100; 84443; 84484; 84520; 85025; 85610; 85730; 87086; 93005; 96374; J1644; J1650; J2543; J3370; J7030; J7050; Q9967